=== PATIENT | male | born 1925 | race Caucasian/White ===

== ENCOUNTER 2016-10-31 07:04 | Inpatient (IN) | payer MEDICARE, OTHER ==
[~2016-10-31] VITALS: Ht 180.3 cm; Wt 64.0 kg
[~2016-10-31 07:04] MED LIST: ACET-2723 PO; ASPI-1085 PO; ATOR20TA PO; BISA10SU8 RECTALLY; CA C1TAB81 PO; CARV12.5 PO; CEPH500C2 PO; DONE10TA PO; FAMO20TA8 PO; FISH1CAP2 PO; FLUT16SP13 NS; FOLI-75 PO; FURO40TA5 PO; GUAI600T PO; HALO1TAB PO; LISI-625 PO; LORA0.5T86 PO; MAGN400O4 PO; MEMA10TA12 PO; MUPI22OI2 EA NOSTRIL; POTA10CA37 PO; SERT100T PO; WARF2.5T73 PO
--- OUTSIDE RECORDS SUMMARY | 2016-10-31 07:09 | XMS REPORT | Continuity of Care Document ---
Author Author [facility] Organization [facility] Address Unknown Phone Unavailable Support Name Relationship Address Phone MARLINE DUMONT DO Caregiver [address] [place] [address] [place] [address] Unavailable PHILIP STARK MD Caregiver [address] [place] [address] [place] [address] Unavailable PHILIP STARK MD Caregiver [address] [place] [address] [place] [address] Unavailable FELICITY TRUJILLO MD Caregiver [address] [facility] [address] [place] [address] Unavailable EDILIA SPICER (DPOA) Next Of Kin [address], [place] [id number] C Insurance Providers Guarantor Rabia Mason Address [address] [place] [address] C Email [email or web address] Payer Medicare Policy Number [id number] Subscriber's Name Rabia Mason Relationship 18 Self Payer R Policy Number [id number] Subscriber's Name Rabia Mason Relationship 18 Self Group Number [id number] Advance Directives Directive Response Recorded Date/Time Advanced Directives Type DNR Documentation Living Will DPOA for Healthcare 05/05/16 8:25am Dr Mueller Resuscitation Status Do Not Resuscitate 05/05/16 11:42am Resuscitation Documents on File Y showwalter 05/05/16 12:36pm DPOA for Healthcare Only Y daughter 05/06/16 3:10pm Living Will Yes 05/05/16 12:36pm Advanced Directive or Resuscitation Comments DNR 05/05/16 12:36pm Problems Active Problems Medical Problem Onset Date Status Acute respiratory failure with hypoxia Unknown Resolved Anemia of chronic disease Unknown Anticoagulated on Coumadin Unknown Chronic Atrial fibrillation Unknown Chronic CKD (chronic kidney disease) stage 3, GFR 30-59 ml/min Unknown Chronic Delirium secondary to multiple medical problems Unknown Dementia Unknown Chronic Dysphagia Unknown Fall Unknown Acute HTN (hypertension) Unknown Chronic Hypokalemia 05/06/2016 Acute Major neurocognitive disorder Unknown Prostate cancer Unknown Resolved Pulmonary edema Unknown Resolved Past Problems Medical Problem Onset Date CHF (congestive heart failure) Unknown Elevated troponin I level Unknown Medications Current Home Medications Medication Dose Units Route Directions Days Qty Instructions Start Date Acetaminophen (Tylenol Extra Strength) 500 Mg Tablet 1 Tab Oral Twice A Day as needed for Pain/Fever 05/05/16 Aspirin (Aspirin Ec) 81 Mg Tablet.dr 81 Mg Oral Daily for Cad 30 Tablet 05/10/16 Atorvastatin Calcium (Lipitor) 20 Mg Tablet 20 Mg Oral Bedtime for Ascad 30 Tablet 05/10/16 Bisacodyl 10 Mg Supp.rect 10 Mg Rectally Daily as needed for Constipation 20 05/10/16 Ca Cmb No.1/Vit D3/B-6/Fa/B12 (Vitamin D3 1,000 Unit Tablet) 1 Each Tablet 2, 000 Unit Oral Daily 01/20/14 Carvedilol (Coreg) 12.5 Mg Tablet 1 Tab Oral Twice Daily With Meals BEST WITH MEALS. 05/05/16 Cephalexin 500 Mg Capsule 1 Cap Oral Three Times A Day for Pneumonia 15 Capsule 05/10/16 Donepezil Hcl (Aricept) 10 Mg Tablet 1 Tab Oral Bedtime 05/05/16 Famotidine 20 Mg Tablet 20 Mg Oral Daily for Gerd 30 Tablet Fluticasone Propionate 16 Gm Wisner.susp 1 Wisner Nasal Daily 09/28 Furosemide 40 Mg Tablet 40 Mg Oral Daily for Chf 30 Tablet 05/10/16 Guaifenesin (Mucinex) 600 Mg Tbbp.12hr 600 Mg Oral Every 12 Hours for Congestion 5 Days 05/10/16 Haloperidol 1 Mg Tablet 1 Mg Oral Bedtime for Dementia 30 Tablet Lisinopril 5 Mg Tablet 5 Mg Oral Bedtime for Chf 30 Tablet 05/10/16 Lorazepam (Ativan) 0.5 Mg Tablet 0.25 Mg Oral Twice A Day as needed for Anxiety/Restlessness 30 Tablet 05/10/16 Magnesium Hydroxide (Milk Of Magnesia) 400 Mg/5 Ml Oral.susp 30 Ml Oral Daily as needed for Constipation 30 Days 05/10/16 Memantine Hcl (Namenda) 10 Mg Tablet 10 Mg Oral Twice A Day Take 1 tablet,by mouth, 2 times a day. 05/05/16 Multivitamin/Iron/Folic Acid (Centrum Complete Multivit Tab) 1 Each Tablet 1 Tab Oral Daily 01/20/14 Mupirocin 22 Gm Oint...g. 1 Applic Each Nostril Twice A Day 7 Days 05/10/16 Hubbard-3 Fatty Acids/Fish Oil (Fish Oil 1,000 Mg Capsule) 1 Each Capsule 1,000 Mg Oral Twice A Day 01/20/14 Potassium Chloride 10 Meq Capsule.er 10 Meq Oral Give With Breakfast Take 1 capsule, by mouth, daily with breakfast 05/05/16 Sertraline Hcl (Zoloft) 100 Mg Tablet 100 Mg Oral Daily 05/05/16 Warfarin Sodium 2.5 Mg Tablet 2.5 Mg Oral 1700 for Afib 30 Tablet Take 1 tablet, by mouth, 1 time a day (at 5 pm). 05/10/16 Past Home Medications Medication Directions Ordered Status Cetirizine Hcl (Zyrtec) 10 Mg Capsule, 1 Cap Oral Daily 05/05/16 Discontinued Fluticasone Propionate (Flonase Allergy Relief 50 Mcg/Actuation Nasal) 9.9 Ml Wisner.susp, 1 Wisner Daily 05/05/16 Discontinued Hydrochlorothiazide 25 Mg Tablet, 12.5 Tab Oral Daily 09/28/12 Discontinued Lisinopril 20 Mg Tablet, 20 Mg Oral Twice A Day 01/20/14 Discontinued Lorazepam (Ativan) 0.5 Mg Tablet, 0.25 Mg Oral Twice A Day 05/05/16 Discontinued Quetiapine Fumarate (Seroquel) 50 Mg Tablet, 50 Mg Oral Bedtime 05/05/16 Discontinued Ranitidine Hcl 150 Mg Capsule, 75 Mg Oral Daily 09/28/12 Discontinued Risperidone (Risperdal) 0.25 Mg Tablet, 0.125 Twice A Day 05/05/16 Discontinued Warfarin Sodium 5 Mg Tablet, 5 Mg Oral M/W/F 01/20/14 Discontinued Social History Social History Problem Response Recorded Date/Time Onset Date Status Reason for Hospitalization Acute CHF 05/10/2016 11:46am Not Applicable Not Applicable Chewing Tobacco Status No 09/28/2012 3:36pm Not Applicable Not Applicable Hx Substance Use No 05/05/2016 8:25am Not Applicable Not Applicable Hx Alcohol Use No 05/05/2016 8:25am Not Applicable Not Applicable Has the pt used tobacco in the last 12 months No 05/05/2016 12:53pm Not Applicable Not Applicable Query Response Start Date Stop Date Smoking Status Never smoker Hospital Discharge Instructions Instructions: Care Instructions: Reason for Hospitalization: Acute CHF [facility]charge [facility], regular liquid; no added salt, may have up to 2 quarts fluid/day Discharge Activity: As tolerated Follow Up Appointments: Dr Trujillo in [address] Rocha in 2-4 weeks Pending Lab / Results: No Pending Lab Patient Instructions: Start Coumadin and Cephalexin tomorrow Wound/Incision Care: n/a Pain Management/Treatment: Tylenol as needed Expected Signs/Symptoms: Improvement of respirtory status Notify Physician If: Chest pain. Increase SOA. Productive cough During Business Hours:: Nursing staff at [facility] After Business Hours:: Nursing staff at [facility] Condition at time of discharge: Good Plan of Care Discharge Date 05/10/16 2:30pm Disposition 03 TO [facility] NOT [facility] ([facility]) Instructions/Education Provided How to Prevent Falls Prescriptions See Medication Section Care Plan and Goals See Discharge Instructions Section Functional Status Query Response Date Recorded Mobility Status Ambulatory w/assist May 10, 2016 11:46am Assistive Devices Standard Walker May 10, 2016 11:46am Activity Limitations Weakness Fatigue Shortness of breath Dizziness May 10, 2016 11:46am Feeding Ability Independent May 10, 2016 11:46am Toileting Ability Assist May 10, 2016 11:46am Grooming Ability Assist May 10, 2016 11:46am Dressing Ability Assist May 10, 2016 11:46am Driving Ability Dependent May 10, 2016 11:46am Housework Ability Dependent May 10, 2016 11:46am Meal Preparation Ability Dependent May 10, 2016 11:46am Stair Climbing Ability Assist May 10, 2016 11:46am Ability to complete ADL's impeded by Change in Behavior Impaired Mobility May 10, 2016 11:46am Cognitive/Perceptual Impairments Acute confusion May 10, 2016 11:46am Visual Assistive Devices Glasses May 08, 2016 12:27pm Allergies, Adverse Reactions, Alerts No known allergies. Immunizations Query Response on File Recorded Date/Time Hx Influenza Vaccination Y fall05/05/16 12:53pm Hx Pneumococcal Vaccination Y fall 201205/05/16 12:53pm Hx Influenza Vaccination Y fall05/05/16 12:53pm Influenza Vaccine Hx fall 201505/05/16 12:57pm Vital Signs Acute Vital Signs Vital Response Date/Time Temperature (Fahrenheit) 98.0 deg F (96.8 - 99.1) 05/10/2016 7:00am Temperature (Calculated Celsius) 36.86785 degrees C (36.0 - 37.3) 05/10/2016 7:00am Pulse Rate (adult) 75 bpm (60 - 100) 05/10/2016 7:00am Respiratory Rate 18 breaths/min (10 - 20) 05/10/2016 7:00am O2 Sat by Pulse Oximetry 94 % (90 - 100) 05/10/2016 7:00am Oxygen Delivery Method Room Air 05/10/2016 7:53am Oxygen Delivery Method Room Air 05/10/2016 7:00am Oxygen Flow Rate 1.00 L/min 05/09/2016 12:16am Blood Pressure 162/88 mm Hg 05/10/2016 7:00am Blood Pressure Source Automatic Cuff 05/10/2016 7:00am Height (Feet) 5 feet 05/10/2016 11:09am Height (Inches) 10.00 inches 05/10/2016 11:09am Weight (Kilograms) 64.100 kg 05/10/2016 7:33am Body Mass Index (BMI) 24.2 05/05/2016 12:35pm Results Laboratory Results Test Name Result Units Flags Reference Collection Date/Time Result Date/ Time Comments White Blood Count 10.7 T/MM3 4.5-11.0 05/10/2016 4:31am 05/10/2016 5: 24am Red Blood Count 3.92 M/MM3 L 4.50-5.90 05/10/2016 4:31am 05/10/2016 5: 24am Hemoglobin 12.5 GM/DL L 13.5-17.5 05/10/2016 4:31am 05/10/2016 5:24am Hematocrit 38.2 % L 41-53 05/10/2016 4:31am 05/10/2016 5:24am Mean Corpuscular Volume 97.4 UM3 80-100 05/10/2016 4:31am 05/10/2016 5: 24am Mean Corpuscular Hemoglobin 31.9 UUG 26-34 05/10/2016 4:31am 2015 5:24am Mean Corpuscular Hemoglobin Concent 32.7 GM/DL 31-37 05/10/2016 4:31am 05/10/2016 5:24am RDW Standard Deviation 48.1 FL 36.9-50.2 05/10/2016 4:3105/10/2016 5 :24am Platelet Count 165 T/MM3 130-400 05/10/2016 4:05/10/2016 5:24am Mean Platelet Volume 11.7 UM3 9.4-12.4 05/10/2016 4:05/10/2016 5: 24am Neutrophils (%) (Auto) 80.4 % H 33-66 05/10/2016 4:05/10/2016 5: 24am Lymphocytes (%) (Auto) 8.3 % L 23-45 05/10/2016 4:05/10/2016 5: 24am Monocytes (%) (Auto) 10.6 % H 0-9.0 05/10/2016 4:05/10/2016 5:24am Eosinophils (%) (Auto) 0.2 % 0-4 05/10/2016 4:05/10/2016 5:24am Basophils (%) (Auto) 0.2 % 0-2 05/10/2016 4:05/10/2016 5:24am Immature Granulocyte % (Auto) 0.3 % 0.0-0.5 05/10/2016 4:2015 5:24am Absolute Neutrophils (auto) 8.6 T/MM3 H 1.8-7.7 05/10/2016 4:2015 5:24am Absolute Lymphocytes (auto) 0.9 T/MM3 L 1-4.8 05/10/2016 4:2015 5:24am Absolute Monocytes (auto) 1.1 T/MM3 H 0-0.8 05/10/2016 4:2015 5:24am Absolute Eosinophils (auto) 0.0 T/MM3 0-0.5 05/10/2016 4:2015 5:24am Absolute Basophils (auto) 0.0 T/MM3 0-0.2 05/10/2016 4:05/10/2016 5:24am Absolute Immature Granulocyte (auto 0.03 T/MM3 0.00-0.03 05/10/2016 4: 05/10/2016 5:24am Neutrophils % (Manual) 86.0 % H 33-66 05/05/2016 8:59am 05/05/2016 9: 22am Band Neutrophils % 2.0 % D 0-6 05/05/2016 8:59am 05/05/2016 9:22am Lymphocytes % (Manual) 10.0 % L 23-45 05/05/2016 8:59am 05/05/2016 9: 22am Monocytes % (Manual) 2.0 % 0-9.0 05/05/2016 8:59am 05/05/2016 9:22am Band Neutrophils # 0.2 T/MM3 05/05/2016 8:59am 05/05/2016 9:22am Absolute Neutrophils (Manual) 8.0 T/MM3 H 1.8-7.7 05/05/2016 8:59am 9:22am Lymphocytes # (Manual) 0.9 T/MM3 L 1-4.8 05/05/2016 8:59am 05/05/2016 9: 22am Monocytes # (Manual) 0.2 T/MM3 0-0.8 05/05/2016 8:59am 05/05/2016 9: 22am Red Cell Morphology Comment NORMAL 05/05/2016 8:59am 05/05/2016 9: 22am Prothromb Time International Ratio 2.51 H 0.99-1.21 05/10/2016 4:31am 05/10/2016 5:26am THERAPUTIC RANGE=2.00-3.00 FOR ANTI-THROMBOSIS THERAPUTIC RANGE=2.50-3.50 FOR IMPLANTED VALVE Icterus Index < 2 0-7 05/10/2016 4:31am 05/10/2016 5:46am Chemistry Specimen Hemolysis < 15 0-25 05/10/2016 4:31am 05/10/2016 5 :46am 0-25: Specimen Exhibited No Hemolysis. Turbidity < 20 0-20 05/10/2016 4:31am 05/10/2016 5:46am Sodium Level 145 MEQ/L H 134-144 05/10/2016 4:31am 05/10/2016 5:46am Potassium Level 3.5 MEQ/L L 3.6-5 05/10/2016 4:31am 05/10/2016 5:46am Chloride Level 101 MEQ/L 98-107 05/10/2016 4:31am 05/10/2016 5:46am Carbon Dioxide Level 34 MEQ/L H 22-30 05/10/2016 4:31am 05/10/2016 5: 46am Anion Gap 10 MEQ/L 5-15 05/10/2016 4:31am 05/10/2016 5:46am Blood Urea Nitrogen 53.0 MG/DL *H 9-20 05/10/2016 4:31am 05/10/2016 6: 03am Creatinine 1.3 MG/DL 0.8-1.5 05/10/2016 4:31am 05/10/2016 5:46am BUN/Creatinine Ratio 41 RATIO H 6-05/10/2016 4:31am 05/10/2016 5: 46am Glomerular Filtration Rate Calc 52 05/10/2016 4:31am 05/10/2016 5: 46am Glucose Level 146 MG/DL H 75-110 05/10/2016 4:31am 05/10/2016 5:46am Calculated Osmolality 296 MOSM/KG H 261-280 05/10/2016 4:31am 2015 5:46am Calcium Level 9.1 MG/DL 8.4-10.2 05/10/2016 4:31am 05/10/2016 5:46am Total Bilirubin 1.10 MG/DL 0.20-1.30 05/08/2016 4:37am 05/08/2016 5: 10am Alkaline Phosphatase 206 U/L H 38-126 05/08/2016 4:37am 05/08/2016 5: 10am Total Protein 6.5 G/DL 6.3-8.2 05/08/2016 4:37am 05/08/2016 5:10am Albumin 3.5 G/DL 3.5-5.0 05/08/2016 4:37am 05/08/2016 5:10am Globulin 3.0 G/DL 2.4-3.6 05/08/2016 4:37am 05/08/2016 5:10am Albumin/Globulin Ratio 1.2 RATIO 1.1-2.2 05/08/2016 4:37am 05/08/2016 5 :10am Aspartate Amino Transf (AST/SGOT) 46 U/L 17-59 05/08/2016 4:37am 2015 5:10am Alanine Aminotransferase (ALT/SGPT) 36 U/L 21-72 05/08/2016 4:37am 5:10am Troponin I 1.150 ng/ml H 0-0.12 05/06/2016 4:35am 05/06/2016 5:38am Troponin values greater than 0.120 ng/ml are considered a critical value. Troponin values with a difference of 55% increase from orginal troponin value represent a true biological DELTA value. (%increase Calc=Orginal Troponin value, divided by subsequent Troponin value, multiplied by 100) RM-Kxa-A-Type Natriuretic Peptide 5570 PG/ML H 0-175 05/09/2016 4:15am 05/09/2016 5:18am Rule in cut points: <50 years old=450; 50-75 years old=900; >75 years old=1800; When utilizing ProBNP rule-in cut points, adjustment for impaired renal function is typically not required. Magnesium Level 2.0 MG/DL 1.6-2.3 05/09/2016 4:15am 05/09/2016 5:11am Vitamin B12 Level 592 PG/ML 239-931 05/07/2016 4:59am 05/09/2016 2: 38am Folate 17.7 NG/ML 2.76-20 05/08/2016 4:37am 05/09/2016 2:57am NORMAL ADULT RANGE: 2.76->20 ng/mL Thyroid Stimulating Hormone (TSH) 1.37 MIU/L 0.47-4.68 05/08/2016 4: 37am 05/08/2016 5:40am MRSA Specimen Source NASAL 05/08/2016 7:27am 05/08/2016 10:33am Methicillin-Resist S.aureus DNA PCR POSITIVE A NEGATIVE 05/08/2016 7: 27am 05/08/2016 10:33am Urine Collection Type CLAROS INDWELLING 05/05/2016 10:45am 2015 10:53am Urine Color YELLOW YELLOW 05/05/2016 10:45am 05/05/2016 10:53am Urine Turbidity CLEAR CLEAR 05/05/2016 10:45am 05/05/2016 10:53am Urine Specific [place] >=1.030 H 1.015-1.025 05/05/2016 10:45am 2015 10:53am Urine pH 5.5 5.0-8.0 05/05/2016 10:45am 05/05/2016 10:53am Urine Leukocyte Esterase NEGATIVE NEGATIVE 05/05/2016 10:45am 2015 10:53am Urine Nitrite NEGATIVE NEGATIVE 05/05/2016 10:45am 05/05/2016 10: 53am Urine Protein NEGATIVE NEGATIVE 05/05/2016 10:45am 05/05/2016 10: 53am Urine Glucose (UA) NEGATIVE NEGATIVE 05/05/2016 10:45am 05/05/2016 10 :53am Urine Ketones TRACE A NEGATIVE 05/05/2016 10:45am 05/05/2016 10:53am Urine Urobilinogen 0.2 EU/DL NORMAL 05/05/2016 10:45am 05/05/2016 10: 53am Urine Bilirubin NEGATIVE NEGATIVE 05/05/2016 10:45am 05/05/2016 10: 53am Urine Blood 1+ A NEGATIVE 05/05/2016 10:45am 05/05/2016 10:53am Urine WBC 0-1 /HPF 0-5 05/05/2016 10:45am 05/05/2016 11:02am Urine RBC 1-3 /HPF 0-3 05/05/2016 10:45am 05/05/2016 11:02am Urine Squamous Epithelial Cells 0-5 05/05/2016 10:45am 05/05/2016 11:02am Urine Bacteria NONE SEEN NEGATIVE 05/05/2016 10:45am 05/05/2016 11: 02am Urine Mucus PRESENT 05/05/2016 10:45am 05/05/2016 11:02am Urine Culture Indicated CULT NOT INDICATED 05/05/2016 10:45am 05/05 11:02am Name: RABIA MASON Unit #: [id number] : 1925 Sex: M Admit Date: 05/05/16 Loc / Svc: MED Discharge Date: DIAGNOSTIC IMAGING REPORT Report #: [id number] [facility] PALLAVI [place] INDICATION: ITS.REASON: f/u pulm edema PROCEDURE: CHEST 2-VIEWS UPRIGHT (PA \T\ LAT) Encounter: Initial COMPARISON: 05/05/2016 FINDINGS: Continued extensive airspace consolidation throughout the left lung. The left base appears to have improved in aeration. Slight haziness of the right base appears similar. Bilateral subpulmonic effusions. There is mild cardiomegaly without pulmonary vascular engorgement or widening of vascular pedicle. Monitor leads overlie the chest. There is no significant skeletal abnormality. IMPRESSION: Bilateral pulmonary opacities with considerable airspace disease throughout the left lung and in the right base with subpulmonic effusions. Some improvement in the left basal aeration. . Procedures No known history of procedures. Encounters Encounter Location Arrival/Admit Date Discharge/Depart Date Attending Provider Discharged Inpatient [facility] 05/05/16 11:42am 05/10/16 2:30pm PHILIP STARK MD
--- NOTE | 2016-10-31 07:20 | NUR ---
SPINE BOARD Removed from board with myself, Peg HODGES and Dr Villalobos. Spine assessment by Dr Villalobos. Sasha pain is R posterior hip and R leg is noted to be shortened.
--- NOTE | 2016-10-31 07:27 | NUR ---
SPLINT Pillow splint applied to R leg for comfort.
--- NOTE | 2016-10-31 07:37 | ERPDOC ---
Departure Disposition Decision Date: October 31, 2016 Disposition Decision Time: 08:00 Disposition: 02 TO [facility] Impression Impression Impression: Primary Impression: Hip fracture Encounter type: initial encounter Fracture type: closed Laterality: right Qualified Codes: S72.001A - Fracture of unspecified part of neck of right femur, initial encounter for closed fracture Severity: Moderate Condition: Improved Seen By: Physician only Referrals: FELICITY SNOWDEN MD (Family) Problems/Meds/Labs Reviewed?: Yes Medications reviewed and manag: Yes Follow up care ordered?: Yes Mental Status: Alert HPI - Fall/Injury General Chief Complaint: Fall Stated Complaint: FALL-HIP PAIN Time Seen by Provider: 07:06 Source: patient, EMS, prison records Exam Limitations: no limitations HPI - Fall/Injury Initial Comments 89-year-old male presents to the emergency department with a chief complaint of an injury to his right hip. Patient was at the nursing facility when he suffered a witnessed mechanical fall. Patient suffered a fall from standing landing onto his right hip. Patient notes pain only in the right hip. Pain is moderate to severe. Pain is sharp. Patient denies any other complaints or associated symptoms. The fall was witnessed. Symptoms have been persistent in nature since onset. Pain increases with movement and improves with rest and positioning. Patient denies any other injuries. Patient is a DO NOT RESUSCITATE and does have noted dementia which is currently at baseline. Occurred At: other ([facility]) Onset: Constant Allergies: Coded Allergies: No Known Allergies (Unverified , 05/05/16) Past History Patient Surgical History tonsillectomy left inguinal hernia left cataract 2012 colonoscopy 2013 Past Medical History Metabolic: cancer, hypertension Cardiac: A-fib GI: GERD Male: kidney stones, renal failure Psychological: dementia Surgical History General: EGD, back, colonoscopy, hernia, other, tonsils Reproductive/: prostatectomy Family History Family PMH: FOUND: other Vaccines Hx Influenza Vaccination: Yes (fall) Hx Pneumococcal Vaccination: Yes (FALL 2012) Social History Smoking Status: Unknown if ever smoked Does patient use chewing tobac: No Second Hand Exposure: No Substance Use Type: does not use Alcohol Intake: none Marital Status: Sexuality: female partner Housing: prison Household Members: spouse Current Occupational Status: retired Advance Directives: Yes DNR Review of Systems Constitutional Constitutional: DENIES: chills, fever Eyes General: DENIES: erythema, exudate Lids/Accessories: DENIES: erythema, swelling Vision: DENIES: acuity, blurring ENMT Ears: DENIES: drainage, erythema Sinuses: DENIES: congestion, pain Nose: DENIES: nosebleeds, pain Mouth/Throat: DENIES: drooling, sore throat Teeth: DENIES: pain Jaw: DENIES: pain Cardiovascular Cardiac: DENIES: chest pain, dyspnea on exertion Rhythm/Rate: DENIES: irregular beat, palpitations Vascular: DENIES: pedal edema, unilateral swelling Pulmonary Respiratory: DENIES: cough, dyspnea GI Upper Abdomen: DENIES: nausea, pain, vomiting Lower Abdomen: DENIES: diarrhea, pain General: DENIES: dysuria, frequency Musculoskeletal General: joint pain, tenderness Integumentary Skin: DENIES: itching, rash Neurological General: DENIES: change in strength, headache, numbness, weakness Psychiatric Psychiatric: DENIES: emotional instability, suicidal ideation/attempt Endocrine Endocrine: DENIES: polydipsia, polyphagia Hematologic/Lymphatic Hematologic/Lymphatic: DENIES: frequent nosebleeds, lymphadenopathy Physical Exam General General Nourishment: well nourished, well developed, appears stated age, no acute distress, adult General Body Habitus: well groomed Vitals and Pain First Documented Vital Signs Date Time Temp Pulse Resp B/P Pulse Ox O2 Delivery O2 Flow Rate FiO2 10/31/16 07:05 98.2 66 20 136/74 88 Room Air Weight: Kilograms: Height (feet): 5 Height (inches): 10.00 Triage Pain Scale: RN VS reviewed by Provider: Yes Normal Exams: Head: Normocephalic w/o trauma Eyes: Pupils are PERRLA w/ EOMI, No scleral icterus, irritation, or foreign bodies noted ENMT: No facial trauma, nasal exudates, pharyngeal erythema, or exudates are noted Dental: No fractured, loose, or missing teeth noted Neck: without adenopathy, JVD, bruits or thyromegaly Chest/Resp: Clear all tarango, with good airflow, and symmetry bilaterally CV: Regular rate and rhythm, without murmur or gallop, Pulses 2+ all extremities, capillary refill, <2 seconds all ext., no pedal edema noted Abdomen: Bowel sounds positive, soft, non-tender, non-distended, no hepatosplenomegaly, masses or bruits noted Lymphatic: No lymphadenopathy, or lymphedema noted Integumentary: No rashes, hives, or bruising noted, hair and nails, without abnormality Neurologic: Patient is alert Psychiatric: Patient exhibits, appropriate attention, emotion and affect Neck (brief) Comments Cervical spine has no tenderness to palpation or deformity. Musculoskeletal (brief) Comments R Hip: Decreased range of motion secondary to pain. Shortening and external rotation of the leg is noted. Pulses are intact. Sensation intact. capillary refill less than 2. No other tenderness in the right lower extremity. Skin is intact. All other extremities are unremarkable. Differential Diagnoses Considering: Other (sprain/strain/fracture/contusion) Progress Results/Orders Orders Procedure Category Date Status Time Ct Head W/O Contrast CT 10/31/16 Resulted 07:23 Ct Cervical Spine W/O CT 10/31/16 Resulted Contrast 07:23 INR LAB 10/31/16 Complete Fentanyl (Fentanyl) PHA 10/31/16 Complete 08:00 Ondansetron Inj PHA 10/31/16 Complete (Zofran) 08:00 Normal Saline (Ns) PHA 10/31/16 Complete 08:00 Ct Pelvis W/O Contrast CT 10/31/16 Resulted 08:01 Npo After Midnight HELEN 10/31/16 In Process 08:27 Maintain Bedrest HELEN 10/31/16 In Process 08:27 Eldred Traction HELEN 10/31/16 In Process 08:27 Consent For Procedure HELEN 10/31/16 In Process 08:27 Npo: Nothing By Mouth DIET 11/01/16 Transmitted Breakfast Type And Screen BBK 10/31/16 In Process 08:08 Lab Results Laboratory Tests Test 10/31/16 08:05 Prothromb Time International Ratio 1.94 Medications Current ED Medications Fentanyl (Fentanyl) 50 mcg O ONCE IV Last administered on 10/31/16 08:34; Start 10/31/16 at 08:00; Stop 10/31/16 at 08:01; Status DC Ondansetron HCl 4 mg 4 mg O ONCE IV Last administered on 10/31/16 08:32; Start 10/31/16 at 08:00; Stop 10/31/16 at 08:01; Status DC Sodium Chloride (NS) 500 ml @ 999 mls/hr Q31M ONCE IV Last administered on 08:28; Start 10/31/16 at 08:00; Stop 10/31/16 at 08:30; Status DC Progress Progress Patient initially declined offered pain medication upon arrival to the emergency Department. Patient was given fentanyl 50 g IV times one for analgesia after patient changes his mind and agrees to accept pain medication. Patient is discussed with orthopedics and Dr. Mckeon will see the patient. Patient is admitted to the service of Dr. Jarrett in improved condition. Dr. Jarrett has agreed to perform the surgical clearance evaluation. Patient is admitted to the hospital in improved condition. Patient and family are in agreement with the current plan of management. No further orders from accepting or consulting physicians. Patient is admitted to the hospital in improved condition. CT CT : CT: Head no contrast Interpretation: Normal, Reviewed Written Report (CT Cspine: Negative. CT pelvis: Right intertrochanteric fracture.) KOKI CANTU DO October 31, 2016 07:37 Luiza has agreed to perform the surgical clearance evaluation. Patient is admitted to the hospital in improved condition. Patient and family are in agreement with the current plan of management. No further orders from accepting or consulting physicians. Patient is admitted to the hospital in improved condition. CT CT : CT: Head no contrast Interpretation: Normal, Reviewed Written Report (CT Cspine: Negative. CT pelvis: Right intertrochanteric fracture.) KOKI CANTU DO October 31, 2016 07:37
--- NOTE | 2016-10-31 07:50 | NUR ---
PT NOTE Accompanied patient to CT for CSpine immobilization
--- NOTE | 2016-10-31 07:55 | NUR ---
PT NOTE Discussed potential CT hip/pelvis with Dr Villalobos related to significant pain in moving patient to/from Imaging table. He will add order.
[2016-10-31] MEDS ORDERED: NORMAL SALINE 500 ML IV ONE (08:00)
[2016-10-31] MEDS ORDERED: ONDANSETRON 4mg/2ml INJECTION IV ONE (08:00)
[2016-10-31] MEDS ORDERED: FENTANYL 100mcg/2ml INJECTION IV ONE (08:00)
--- NOTE | 2016-10-31 08:13 | DI ---
Indication: ITS.REASON: Fall with head injury and pain PROCEDURE: CT HEAD W/O CONTRAST: Encounter: Initial Comparison: May 05, 2016 Technique: Axial CT images through the head were performed without contrast. Iterative Reconstruction dose reducing technique was utilized. FINDINGS: Moderate generalized atrophy. The ventricles are of normal size, shape, and configuration for the patient's age. There is no evidence of acute intracranial hemorrhage, midline displacement, or mass effect. There are scattered areas of low attenuation in the white matter which most likely represent changes of chronic microvascular ischemia. The CT attenuation of the brain parenchyma is otherwise normal within the cerebellum, brain stem, and cerebral hemispheres. The tympanic cavities and mastoid air cells are free of appreciable disease. There are no definite fractures of the skull base, calvarium, or visualized portion of the midface. IMPRESSION: No CT evidence of acute traumatic intracranial injury. .
--- NOTE | 2016-10-31 08:15 | DI ---
Indication: ITS.REASON: fall injury PROCEDURE: CT CERVICAL SPINE W/O CONTRAST: Encounter: Initial Comparison: May 05, 2016 Technique: Axial CT images through the cervical spine were performed without contrast. Coronal and sagittal reformatted images were also obtained. Automated Exposure Control and Iterative Reconstruction dose reducing techniques were utilized. FINDINGS: The alignment of the cervical spine is normal. Multilevel degenerative changes are present. There is no evidence of acute fracture or subluxation of the cervical spine. The atlantoaxial articulation, dens, and upper cervical spine demonstrate no subluxation. Stable nodularity in the left upper lobe. IMPRESSION: No acute traumatic abnormality of the cervical spine. .
--- NOTE | 2016-10-31 08:17 | DI ---
Indication: ITS.REASON: Fall with right hip pain PROCEDURE: CT PELVIS W/O CONTRAST: Encounter: Initial Comparison: None Technique: Axial noncontrast CT imaging through the pelvis with coronal and sagittal two-dimensional reformats. Automated Exposure Control and Iterative Reconstruction dose reducing techniques were utilized. Findings: Mildly comminuted and impacted fracture of the intertrochanteric right femur. No additional acute fracture. No dislocation. There is no significant hematoma associated with the fracture currently. No free pelvic fluid. Degenerative change in the visualized lower lumbar spine. Bones are demineralized limiting detection of nondisplaced fractures. Impression: Intertrochanteric right femoral fracture. .
[2016-10-31 08:19] LABS: INR 1.94 (0.77-1.03); PROTHROMBIN TIME 21.2 SEC (9.48-12.52)
--- NOTE | 2016-10-31 08:40 | NUR ---
REPORT REPORT TO COREY HODGESALLIGATOR H[facility] UNIT
--- NOTE | 2016-10-31 08:47 | NUR ---
C-COLLAR C-COLLAR REMOVED AT THIS TIME PER DR CANTU'S VERBAL ORDER
--- NOTE | 2016-10-31 08:59 | NUR ---
ADMIT Pt admitted to room 112 from ED via cart. Pt moved from cart to bed via slide board x3 assist. Pt Alert to self and situation. I knew he fell and that his leg hurts but is not an accurate historian as to how the fall occurred. Pt is also unaware where he is at. Pt appears to be comfortable but does grimace frequently. Will continue to monitor.
--- NOTE | 2016-10-31 08:59 | NUR ---
TRANSFER PT TO ROOM 112 PER CART
[2016-10-31] MEDS ORDERED: ONDANSETRON 4mg/2ml INJECTION IV PRN (09:00)
[2016-10-31] MEDS ORDERED: CEFAZOLIN 2 G in NORMAL SALINE 100 ML IV SCH (09:00)
[2016-10-31] MEDS ORDERED: NORMAL SALINE IV SCH (09:00)
[2016-10-31] MEDS ORDERED: CEFAZOLIN IV SCH (09:00)
[2016-10-31] MEDS ORDERED: NAPROXEN 220 MG TABLET PO PRN (09:00)
[2016-10-31] MEDS ORDERED: TRAMADOL 50 MG TABLET PO PRN (09:00)
[2016-10-31] MEDS ORDERED: MILK OF MAGNESIA 30 ML SUSP PO PRN (09:00)
[2016-10-31 09:13] VITALS: BP 161/99; PULSE 88; RESP 20; TEMP 97.3; O2SAT 96
[2016-10-31] MEDS ORDERED: PHYTONADIONE 5mg/2.5ml ORAL SOLUTION PO ONE ×2 (09:15→19:00)
[2016-10-31 09:17] VITALS: Ht 180.3 cm; Wt 64.0 kg
[2016-10-31] MEDS ORDERED: LORA0.5T2 PO (09:22)
[2016-10-31] MEDS ORDERED: WARF2.5T73 PO (09:23)
[2016-10-31] MEDS ORDERED: ASPI81TA2 PO (09:28)
[2016-10-31] MEDS ORDERED: FURO40TA5 PO (09:29)
[2016-10-31] MEDS ORDERED: FAMO20TA8 PO (09:29)
[2016-10-31] MEDS: NORMAL SALINE 1,000 ML IV SCH ×2 (09:56→21:58)
[2016-10-31] MEDS: HYDROMORPHONE 2mg/ml INJECTION IV PRN (10:01)
--- NOTE | 2016-10-31 10:01 | HPPDOC ---
ZEINA GALLARDO V SUSTAINMENT LOGISTICS ANALYST 10/31/16 1001: HPI - Adult Date DATE: 10/31/16 TIME: 09:56 General Chief Complaint: fall, right hip pain History of Present Illness Patient is an 89-year-old male who currently resides at [facility]. This morning he suffered a witnessed fall from standing, landing on the right hip. EMS was contacted and brought patient to the emergency room for further evaluation and treatment. A pelvis x-ray did reveal a right intertrochanteric femoral fracture. Given nature of patient's fall further trauma evaluation including CT scan of the head and C-spine were obtained showing no acute trauma/fractures or intracranial hemorrhages. Due to patient's chronic anticoagulation and INR was obtained which was 1.94. He did receive fentanyl and Zofran in the emergency room. He was mildly hypoxic with sats of 88 %. He was placed on 3 liters oxygen by nasal cannula to maintain adequate saturations. The hospitalist services were contacted and accepted patient for inpatient admission for further evaluation and treatment. Malcolm is seen on admission with his Son at the bedside. Son reports that patient has a known history of dementia and has had some cognitive decline over the past several months. We did discuss advanced directives as sun but does verify patient is a do not resuscitate. Past Medical History Past Medical History Chronic atrial fibrillation Chronic anticoagulation on warfarin Congestive heart failure Hypertension History of prostate cancer chronic kidney disease. Dementia Surgical History Patient's Surgical History: Tonsillectomy Left inguinal hernia Left cataract 2012 Colonoscopy 2013 Current Medications Home Meds Reported Medications Furosemide (Furosemide) 40 Mg Tablet, 40 MG PO DAILY 10/31/16 Famotidine (Famotidine) 20 Mg Tablet, 20 MG PO DAILY 10/31/16 Aspirin (Aspirin) 81 Mg Tab.chew, 81 MG PO DAILY 10/31/16 Warfarin Sodium (Warfarin Sodium) 2.5 Mg Tablet, 2.5 MG PO DAILY 10/31/16 Lorazepam (Lorazepam) 0.5 Mg Tablet, 0.25 MG PO BID Y for ANXIETY 10/31/16 Potassium Chloride (Potassium Chloride) 10 Meq Capsule.er, 20 MEQ PO BID 05/05/16 Sertraline (Zoloft) 100 Mg Tablet, 100 MG PO DAILY, TAB 05/05/16 Memantine HCl (Namenda) 10 Mg Tablet, 10 MG PO BID 11/21/16 Acetaminophen (Tylenol Extra Strength) 500 Mg Tablet, 500 MG PO BID 05/05/16 Donepezil HCl (Aricept) 10 Mg Tablet, 10 MG PO HS 05/05/16 Carvedilol (Coreg) 12.5 Mg Tablet, 12.5 MG PO BIDWM 05/05/16 Fluticasone Propionate (Fluticasone Propionate) 16 Gm [place].susp, 1 SPRAY NS DAILY 09/28/12 Allergies: Coded Allergies: No Known Allergies (Unverified , 10/31/16) Family History Family History: His mother of tuberculosis when he was only 6 years old. His father of complications from pneumonia before he was born - he had lung damage from the war, and it was worse from working in the coal [employer]. He did not have any siblings He was raised by his maternal aunt, who lived until the age of 91. She had dementia. 2 grown children who are both healthy. Social History Smoking Status: Unknown if ever smoked Does patient use chewing tobac: No Second Hand Exposure: No Substance Use Type: does not use Alcohol Intake: none Marital Status: Sexuality: female partner Housing: long term ([facility]) Household Members: spouse Current Occupational Status: retired Advance Directives: Yes DNR, Yes DPOA for Healthcare Only (Son and Daughter share POA) Social History Comments PCP Dr Trujillo Review of Systems Unable to Obtain ROS Due to: dementia Musculoskeletal General: pain (Right hip), see HPI All Other Systems All Other Systems: Reviewed (remainder of 10-point ROS Neg.) Physical Exam General General Nourishment: well nourished, well developed Vital Signs Vital Signs Date Time Temp Pulse Resp B/P Pulse Ox O2 Delivery O2 Flow Rate FiO2 10/31/16 09:13 97.3 88 20 161/99 96 Nasal Cannula 3.00 Height (Feet): 5 Height (Inches): 11.00 Eyes Brief: FOUND: EOMI, PERRL ENMT Brief: FOUND: mucosa moist, normal dentition, NOT FOUND: pharnyx erythema Neck Brief: FOUND: midline Respiratory Brief: FOUND: clear all tarango, equal bilaterally, NOT FOUND: wheezes Cardiovascular (brief) Cardiac Brief: FOUND: regular rate, regular rhythm, NOT FOUND: murmur, pedal edema Abdomen (brief) Abdominal Brief: FOUND: BS normo active x4, soft, NOT FOUND: distended, tender Musculoskeletal (brief) Musculoskeletal Brief: FOUND: tenderness (Right hip fracture) Integumentary (brief) Integumentary Brief: FOUND: dry, pink, warm Neurologic (brief) Neurological Brief: FOUND: cranial 2-12 intact Neurologic RN Documented GCS Eye Opening: (4)Spontaneous Verbal: (4)Confused Motor: (5)Localizes to Pain Total: 12 Psychiatric (brief) FOUND: alert, attentive, normal affect Laboratory Laboratory Tests Test 10/31/16 08:05 Prothromb Time International Ratio 1.94 Assessment & Plan Problems: (1) Intertrochanteric fracture of right hip Status: Acute Qualifiers: Encounter type: initial encounter Fracture type: closed Qualified Codes: S72.141A - Displaced intertrochanteric fracture of right femur, initial encounter for closed fracture (2) CHF (congestive heart failure) Status: Chronic (3) CKD (chronic kidney disease) stage 3, GFR 30-59 ml/min Status: Chronic (4) Atrial fibrillation Status: Chronic (5) Anticoagulated on Coumadin Status: Chronic (6) HTN (hypertension) Status: Chronic (7) Dementia Status: Chronic (8) Prostate cancer Status: Resolved Plan/Intensity of Service Admit patient to inpatient status under the care of Dr. Jarrett for acute right intertrochanteric hip fracture Consultation placed to Dr. Mckeon for further orthopedic evaluation and treatment. Will obtain the following laboratory studies on admission CBC, CMP, urinalysis. Regarding INR of 1.94, will give patient vitamin K 5 milligrams by mouth 1 now. Will recheck an INR this evening at 1800. Will need to start Lovenox post-operatively to bridge Coumadin until therapeutic Place Johnson cath to DD Obtain preoperative chest x-ray. Normal saline at 80 ML per hour for gentle hydration. Monitor for evidence of fluid overload. [place] and tramadol as needed for pain control. Oxygen therapy to maintain adequate saturations. Will recheck CBC and BMP tomorrow morning to follow blood counts, renal function and electrolytes. Again, patient's son request patient to be a do not resuscitate and this orders written. Will discuss further orders and plan of care with attending, Dr. Jarrett At time of discharge medical care is to return to PCP Dr Perfecto Trujillo DVT Prophylaxis: SCD'S Code Status DNR Hospital Course Summary Disclaimer The hospital course summary below is not to be considered part of the above Progress Note. Hospital Course Summary Admit patient to inpatient status under the care of Dr. Jarrett for acute right intertrochanteric hip fracture Consultation placed to Dr. Mckeon for further orthopedic evaluation and treatment. Will obtain the following laboratory studies on admission CBC, CMP, urinalysis. Regarding INR of 1.94, will give patient vitamin K 5 milligrams by mouth 1 now. Will recheck an INR this evening at 1800. Will need to start Lovenox post-operatively to bridge Coumadin until therapeutic Place Johnson cath to DD Obtain preoperative chest x-ray. Normal saline at 80 ML per hour for gentle hydration. Monitor for evidence of fluid overload. [place] and tramadol as needed for pain control. Oxygen therapy to maintain adequate saturations. Will recheck CBC and BMP tomorrow morning to follow blood counts, renal function and electrolytes. Again, patient's son request patient to be a do not resuscitate and this orders written. Will discuss further orders and plan of care with attending, Dr. Jarrett At time of discharge medical care is to return to PCP WILLIAM Lopez MD 10/31/16 2011: Past Medical History Current Medications Home Meds Reported Medications Furosemide (Furosemide) 40 Mg Tablet, 40 MG PO DAILY 10/31/16 Famotidine (Famotidine) 20 Mg Tablet, 20 MG PO DAILY 10/31/16 Aspirin (Aspirin) 81 Mg Tab.chew, 81 MG PO DAILY 10/31/16 Warfarin Sodium (Warfarin Sodium) 2.5 Mg Tablet, 2.5 MG PO DAILY 10/31/16 Lorazepam (Lorazepam) 0.5 Mg Tablet, 0.25 MG PO BID Y for ANXIETY 10/31/16 Potassium Chloride (Potassium Chloride) 10 Meq Capsule.er, 20 MEQ PO BID 05/05/16 Sertraline (Zoloft) 100 Mg Tablet, 100 MG PO DAILY, TAB 05/05/16 Memantine HCl (Namenda) 10 Mg Tablet, 10 MG PO BID 05/05/16 Acetaminophen (Tylenol Extra Strength) 500 Mg Tablet, 500 MG PO BID 05/05/16 Donepezil HCl (Aricept) 10 Mg Tablet, 10 MG PO HS 05/05/16 Carvedilol (Coreg) 12.5 Mg Tablet, 12.5 MG PO BIDWM 05/05/16 Fluticasone Propionate (Fluticasone Propionate) 16 Gm [place].susp, 1 SPRAY NS DAILY 09/28/12 Allergies: Coded Allergies: No Known Allergies (Unverified , 10/31/16) Assessment & Plan Problems: (1) Intertrochanteric fracture of right hip Status: Acute Qualifiers: Encounter type: initial encounter Fracture type: closed Qualified Codes: S72.141A - Displaced intertrochanteric fracture of right femur, initial encounter for closed fracture (2) CHF (congestive heart failure) Status: Chronic (3) CKD (chronic kidney disease) stage 3, GFR 30-59 ml/min Status: Chronic (4) Atrial fibrillation Status: Chronic (5) Anticoagulated on Coumadin Status: Chronic Assessment & Plan: Patient was given an initial dose of 5 mg oral vitamin K, but by the evening was not yet responsive so 2nd dose was given. This is not effective by morning fresh frozen plasma may be given prior to surgery (6) HTN (hypertension) Status: Chronic (7) Dementia Status: Chronic (8) Prostate cancer Status: Resolved Assessment Patient seen and examined by me. Have read and agree with nurse practitioner Zeina Gallardo's history and physical, assessment and plan. Orthopedics is anticipating surgery approximately noon tomorrow. We will attempt to accommodate this ZEINA GALLARDO APRN October 31, 2016 10:01 WILLIAM JARRETT MD October 31, 2016 20:11
[2016-10-31 10:11] LABS: BASOPHILS # (AUTO) 0.1 T/MM3 (0-0.2); BASOPHILS % (AUTO) 1.2 % (0-2); EOSINOPHILS # (AUTO) 0.2 T/MM3 (0-0.5); EOSINOPHILS % (AUTO) 4.8 % (0-4); HCT - HEMATOCRIT 35.7 % (41-53); HGB - HEMOGLOBIN 11.9 GM/DL (13.5-17.5); IMMATURE GRANULOCYTE # (AUTO) 0.01 T/MM3 (0.00-0.03); IMMATURE GRANULOCYTE % (AUTO) 0.2 % (0.0-0.5); LYMPHOCYTES # (AUTO) 0.9 T/MM3 (1-4.8); MEAN CORPUSCULAR HGB CONC(MCHC 33.3 GM/DL (31-37); MEAN PLATELET VOLUME 11.7 UM3 (9.4-12.4); MONOCYTES # (AUTO) 0.4 T/MM3 (0-0.8); MONOCYTES % (AUTO) 8.6 % (0-9.0); NEUTROPHILS #(AUTO)-ABSOLUTE 3.4 T/MM3 (1.8-7.7); NEUTROPHILS % (AUTO) 68.2 % (33-66); RED BLOOD COUNT 3.84 M/MM3 (4.50-5.90)
[2016-10-31 10:20] LABS: ALBUMIN 4.3 G/DL (3.5-5.0); ALBUMIN/GLOBULIN RATIO 1.4 RATIO (1.1-2.2); ALKALINE PHOSPHATASE 223 U/L (38-126); ALT (SGPT) 43 U/L (21-72); ANION GAP 16 MEQ/L (5-15); AST (SGOT) 38 U/L (17-59); BUN/CREATININE RATIO 26 RATIO (6-26); CALCIUM 9.6 MG/DL (8.4-10.2); CHLORIDE 100 MEQ/L (98-107); CO2 - CARBON DIOXIDE 28 MEQ/L (22-30); CREATININE 1.2 MG/DL (0.8-1.5); GLOMERULAR FILTRATION RATE 57; GLUCOSE 107 MG/DL (75-110); POTASSIUM 4.1 MEQ/L (3.6-5); SODIUM 144 MEQ/L (134-144); TOTAL PROTEIN 7.4 G/DL (6.3-8.2)
--- NOTE | 2016-10-31 10:20 | NUR ---
[place] Traction 5# bucks tractions applied to right extremity per physician order. Pt tolerated readjusting leg well. After bucks applied pt stated that his pain feels much better and he visibly relaxed. PRN 0.5 mg Dilaudid given to pt prior to application of BUCKS.
--- NOTE | 2016-10-31 10:30 | NUR ---
Johnson Insertion Johnson placed at this time by TATIANA Self using Indwelling Johnson kit and sterile technique. Pt penis cleaned with Aloe Foam and wash clothes as well as [place] soap wipes provided in kit. Pt tolerated insertion well. Urine specimen collected from Johnson bag (per policy/first time collection). Urine visibly clear and yellow. Will continue to monitor.
[2016-10-31] MEDS: SENNA + DOCUSATE TAB PO SCH ×2 (10:43→21:58)
--- NOTE | 2016-10-31 10:43 | NUR ---
Hubbell PRN One Hubbell 7.5mg PRN given at this time for pain. Pt grimacing and wants to rest. Requested pain medication.
[2016-10-31 10:48] LABS: BLOOD, URINE NEGATIVE (NEGATIVE); COLOR,URINE YELLOW (YELLOW); LEUKOCYTE ESTERASE ,URINE NEGATIVE (NEGATIVE); NITRITE,URINE NEGATIVE (NEGATIVE); UROBILINOGEN,URINE 0.2 EU/DL (NORMAL)
--- NOTE | 2016-10-31 11:55 | DI ---
Indication: ITS.REASON: pre operative PROCEDURE: CHEST 1 VIEW: Encounter: Initial Comparison: May 07, [address] thoracic spine dated May 05, 2016 and chest x-ray dated August 07, 2011 Findings: Airspace consolidation in the left lower lobe. Patient had multifocal airspace disease present on the comparison studies. Skinfold noted in the right chest. Right lung is clear. Possible trace effusions. No pneumothorax. Cardiac silhouette is moderately enlarged. Mediastinal contours are stable. Pulmonary vascularity appears normal. Impression: Left lower lobe airspace disease could be acute or chronic. Recommend clinical and laboratory correlation for signs and symptoms of pneumonia. .
--- NOTE | 2016-10-31 12:25 | NUR ---
CARE REC'D VERBAL REPORT FROM Cat DANIEL RN. ASSUMING CARE OF PT.
[2016-10-31 12:49] VITALS: PULSE 88; RESP 18
--- NOTE | 2016-10-31 13:23 | CONSPD ---
Consultation Info Date DATE: 10/31/16 TIME: 13:16 Attending Physician Alec Mckeon MD Impression/Recommendation Impression/Recommendation: (1) Intertrochanteric fracture of right hip Status: Acute Qualifiers: Encounter type: initial encounter Fracture type: closed Qualified Codes: S72.141A - Displaced intertrochanteric fracture of right femur, initial encounter for closed fracture Recommendation: x Dr Mckeon has agreed to see the pt and proceed with surgical fixation of the right hip if he is found to be medically stable. Risk vs benefits, possible complications and post surgical course will be discussed with the pts family as Mr Mason has dementia. Plan ORIF with IM nail when INR is < 1.3 . Vit K given earlier today. Check INR later today and in AM. Medical mgmt per hospitalist service. Ortho HPI HPI Elements HPI Chief Complaint: fall, right hip pain History of Present Illness Patient is an 89-year-old male who currently resides at [facility]. This morning he suffered a witnessed fall from standing, landing on the right hip. EMS was contacted and brought patient to the emergency room for further evaluation and treatment. X-rays did reveal a displaced right intertrochanteric femoral fracture. Given nature of patient's fall further trauma evaluation including CT scan of the head and C-spine were obtained showing no acute trauma/fractures or intracranial hemorrhages Pt will be admitted for planned surgical fixation of the right hip when the INR is <1,3 Review of Systems Unable to Obtain ROS Due to: dementia Musculoskeletal General: pain (Right hip), see HPI All Other Systems Reviewed (remainder of 10-point ROS Neg.) Past Medical History Adult Problem List Updates Chronic atrial fibrillation Chronic anticoagulation on warfarin Congestive heart failure Hypertension History of prostate cancer chronic kidney disease. Dementia Surgical History Patient's Surgical History: Tonsillectomy Left inguinal hernia Left cataract 2012 Colonoscopy 2013 Current Medications Acetaminophen (Tylenol Extra Strength) 500 Mg Tablet, 500 MG PO BID, (Reported) Last Taken: Unknown Dose on 10/30/16 1600 Aspirin (Aspirin) 81 Mg Tab.chew, 81 MG PO DAILY, (Reported) Last Taken: Unknown Dose on 10/30/16 0800 Carvedilol (Coreg) 12.5 Mg Tablet, 12.5 MG PO BIDWM, (Reported) Last Taken: Unknown Dose on 10/30/16 1700 Donepezil HCl (Aricept) 10 Mg Tablet, 10 MG PO HS, (Reported) Last Taken: Unknown Dose on 10/30/161999 Famotidine (Famotidine) 20 Mg Tablet, 20 MG PO DAILY, (Reported) Last Taken: Unknown Dose on 10/30/161999 Fluticasone Propionate ( Fluticasone Propionate) 16 Gm [place].susp, 1 SPRAY NS DAILY, (Reported) Last Taken: Unknown Dose on 10/30/16 0900 Furosemide (Furosemide) 40 Mg Tablet, 40 MG PO DAILY, (Reported) Last Taken: Unknown Dose on 10/30/16 0700 Lorazepam (Lorazepam) 0.5 Mg Tablet , 0.25 MG PO BID PRN for ANXIETY, (Reported) Last Taken: Unknown Dose on Unknown Date & Time Memantine HCl (Namenda) 10 Mg Tablet, 10 MG PO BID, (Reported) Last Taken: Unknown Dose on 10/30/16 1800 Potassium Chloride (Potassium Chloride) 10 Meq Capsule.er, 20 MEQ PO BID, (Reported) Last Taken: Unknown Dose on 10/30/16 1700 Sertraline (Zoloft) 100 Mg Tablet, 100 MG PO DAILY, (Reported) Last Taken: Unknown Dose on 10/30/16 0700 Warfarin Sodium (Warfarin Sodium) 2.5 Mg Tablet, 2.5 MG PO DAILY, (Reported) Last Taken: Unknown Dose on 10/30/16 1800 Allergies Allergies: Coded Allergies: No Known Allergies (Unverified , 10/31/16) Family History Family History: His mother of tuberculosis when he was only 6 years old. His father of complications from pneumonia before he was born - he had lung damage from the war, and it was worse from working in the [employer]. He did not have any siblings He was raised by his maternal aunt, who lived until the age of 91. She had dementia. 2 grown children who are both healthy. Vaccines fall 2015 2013 FALL 2012 UNKNOWN Social History Smoking Status: Unknown if ever smoked Does patient use chewing tobac: No Second Hand Exposure: No Substance Use Type: does not use Alcohol Intake: none Marital Status: Sexuality: female partner Housing: senior care ([facility]) Household Members: spouse Current Occupational Status: retired Advance Directives: Yes DNR, Yes DPOA for Healthcare Only (Son and Daughter share POA) Physical Exam General General: well nourished, well developed, no acute distress Respiratory FOUND non-labored Abdomen Abdominal: FOUND soft, NOT FOUND distended, NOT FOUND tender Musculoskeletal Musculoskeletal : Side: Right Hip: FOUND painful PROM, FOUND tender over trochanter Integumentary FOUND dry, FOUND pink, FOUND warm Neurologic FOUND no deficits (Limited exam due to underlying dementia.) Psychiatric FOUND alert, FOUND other (Dementia.) Laboratory Laboratory Tests Test 10/31/16 08:05 10/31/16 08:08 10/31/16 10:35 Prothromb Time International Ratio 1.94 White Blood Count 5.0T/MM3 Red Blood Count 3.84M/MM3 Hemoglobin 11.9GM/DL Hematocrit 35.7% Mean Corpuscular Volume 93.0UM3 Mean Corpuscular Hemoglobin 31.0UUG Mean Corpuscular Hemoglobin Concent 33.3GM/DL RDW Standard Deviation 48.1FL Platelet Count 120T/MM3 Mean Platelet Volume 11.7UM3 Immature Granulocyte % (Auto) 0.2% Neutrophils (%) (Auto) 68.2% Lymphocytes (%) (Auto) 17.0% Monocytes (%) (Auto) 8.6% Eosinophils (%) (Auto) 4.8% Basophils (%) (Auto) 1.2% Absolute Immature Granulocyte (auto 0.01T/MM3 Absolute Neutrophils (auto) 3.4T/MM3 Absolute Lymphocytes (auto) 0.9T/MM3 Absolute Monocytes (auto) 0.4T/MM3 Absolute Eosinophils (auto) 0.2T/MM3 Absolute Basophils (auto) 0.1T/MM3 Turbidity < 20 Sodium Level 144MEQ/L Potassium Level 4.1MEQ/L Chloride Level 100MEQ/L Carbon Dioxide Level 28MEQ/L Anion Gap 16MEQ/L Blood Urea Nitrogen 31.0MG/DL Creatinine 1.2MG/DL Glomerular Filtration Rate Calc 57 BUN/Creatinine Ratio 26RATIO Glucose Level 107MG/DL Calculated Osmolality 284MOSM/KG Calcium Level 9.6MG/DL Total Bilirubin 1.10MG/DL Icterus Index < 2 Aspartate Amino Transf (AST/SGOT) 38U/L Alanine Aminotransferase (ALT/SGPT) 43U/L Alkaline Phosphatase 223U/L Total Protein 7.4G/DL Albumin 4.3G/DL Globulin 3.1G/DL Albumin/Globulin Ratio 1.4RATIO Chemistry Specimen Hemolysis 26 Urine Collection Type Johnson indwelling Urine Color Yellow Urine Turbidity Clear Urine pH 5.5 Urine Specific [place] 1.015 Urine Protein Negative Urine Glucose (UA) Negative Urine Ketones Trace Urine Blood Negative Urine Nitrite Negative Urine Bilirubin Negative Urine Urobilinogen 0.2EU/DL Urine Leukocyte Esterase Negative Urinalysis Comment Microscopic not ind. Radiology Radiology Closed, displaced, IT fx of the right hip. ANTONY YANES October 31, 2016 13:19
[2016-10-31 13:26] VITALS: BP 138/88; PULSE 82; RESP 17; TEMP 99.2; O2SAT 96
[2016-10-31] MEDS ORDERED: PNEUMOCOCCAL 13 VACCINE 0.5 ML SYRINGE IM ONE (15:00)
[2016-10-31 15:30] VITALS: BP 128/67; PULSE 78; RESP 14; TEMP 99.4; O2SAT 100
--- NOTE | 2016-10-31 17:10 | NUR ---
SURGEON CONTACT DR. LO IN ROOM TO DISCUSS STATUS/PLAN OF CARE WITH PT'S FAMILY
[2016-10-31 18:20] LABS: INR 2.05 (0.77-1.03); PROTHROMBIN TIME 22.4 SEC (9.48-12.52)
--- NOTE | 2016-10-31 18:41 | NUR ---
SUMMARY PT CURRENTLY IN HALLWAY DUE TO [place]NA[place] WARNING. PT CONTINUES TO SLEEP. IS EASILY ROUSED BY VERBAL STIMULI BUT GOES RIGHT BACK TO SLEEP. FAMILY AT BEDSIDE. BUCKS TRACTION STILL IN PLACE.
[2016-10-31 20:00] VITALS: PULSE 77; RESP 16
[2016-10-31 21:45] VITALS: BP 141/65; PULSE 85; RESP 16; TEMP 98.2; O2SAT 98
[2016-11-01 01:03] VITALS: BP 143/75; PULSE 90; RESP 16; TEMP 98.6; O2SAT 100
[2016-11-01] MEDS: HYDROMORPHONE 2mg/ml INJECTION IV PRN (01:17)
[2016-11-01 05:38] LABS: BASOPHILS % (AUTO) 0.3 % (0-2); EOSINOPHILS # (AUTO) 0.1 T/MM3 (0-0.5); EOSINOPHILS % (AUTO) 1.6 % (0-4); HCT - HEMATOCRIT 33.2 % (41-53); HGB - HEMOGLOBIN 10.7 GM/DL (13.5-17.5); IMMATURE GRANULOCYTE # (AUTO) 0.02 T/MM3 (0.00-0.03); IMMATURE GRANULOCYTE % (AUTO) 0.2 % (0.0-0.5); LYMPHOCYTES # (AUTO) 0.7 T/MM3 (1-4.8); LYMPHOCYTES % (AUTO) 8.3 % (23-45); MEAN CORPUSCULAR HGB 30.3 UUG (26-34); MEAN CORPUSCULAR HGB CONC(MCHC 32.2 GM/DL (31-37); MEAN CORPUSCULAR VOLUME 94.1 UM3 (80-100); MEAN PLATELET VOLUME 12.1 UM3 (9.4-12.4); MONOCYTES # (AUTO) 0.6 T/MM3 (0-0.8); MONOCYTES % (AUTO) 6.7 % (0-9.0); NEUTROPHILS #(AUTO)-ABSOLUTE 7.2 T/MM3 (1.8-7.7); NEUTROPHILS % (AUTO) 82.9 % (33-66); RED BLOOD COUNT 3.53 M/MM3 (4.50-5.90); WBC - WHITE BLOOD COUNT 8.7 T/MM3 (4.5-11.0)
[2016-11-01 05:43] LABS: PROTHROMBIN TIME 21.8 SEC (9.48-12.52)
[2016-11-01 05:46] LABS: ANION GAP 12 MEQ/L (5-15); BUN/CREATININE RATIO 30 RATIO (6-26); CALCIUM 8.9 MG/DL (8.4-10.2); CHLORIDE 105 MEQ/L (98-107); CO2 - CARBON DIOXIDE 25 MEQ/L (22-30); GLOMERULAR FILTRATION RATE 70; GLUCOSE 108 MG/DL (75-110); SODIUM 142 MEQ/L (134-144)
[2016-11-01] MEDS: PANTOPRAZOLE 40 MG TABLET PO SCH (06:09)
--- NOTE | 2016-11-01 07:56 | ANESPREOP ---
Anesthesia Record Date and Time DATE: 11/01/16 TIME: 07:54 Pre-Op Diagnosis Right hip fx Proposed Surgical Procedure IM Nail Right Hip NPO since: [place] Allergies: Coded Allergies: No Known Allergies (Unverified , 10/31/16) Ht/Wt/BMI Height: 5 ' 11.00 " Weight: 61.300 kg BMI: 18.9 kg/m2 Vital Signs Date Time Temp Pulse Resp B/P Pulse Ox O2 Delivery O2 Flow Rate FiO2 11/01/16 01:03 98.6 90 16 143/75 100 Nasal Cannula 2.00 Medications Inpatient Medications Current Medications Medications (Trade) Dose Ordered Sig/Artemio Start Time Stop Time Status Last Admin Dose Admin Sodium Chloride (Normal Saline IV) 1,000 ml @ 80 mls/hr [id number] 10/31/16 09:00 10/31/16 21:58 80 MLS/HR Acetaminophen/ Hydrocodone Bitart (Delton 7.5/325) 1-2 TABS Q6H PRN 10/31/16 09:00 10/31/16 10:43 1 TAB Tramadol HCl (Ultram) 50-100 MG Q4H PRN 10/31/16 09:00 Naproxen Sodium (ALEVE 220 mg) 440 mg BID PRN 10/31/16 09:00 Hydromorphone HCl (Dilaudid) 0.5-1 MG Q1H PRN 10/31/16 09:00 11/01/16 01:17 1 MG Ondansetron HCl (Zofran) 4 mg Q6H PRN 10/31/16 09:00 Pantoprazole Sodium (Protonix) 40 mg ACB 11/01/16 06:30 Magnesium Hydroxide (Mom) 30 ml DAILY PRN 10/31/16 09:00 Senna/Docusate Sodium 1 tab 1 tab BID 10/31/16 09:00 10/31/16 21:58 1 TAB Cefazolin Sodium 2 g/Sodium Chloride 100 ml @ 200 mls/hr Q8H 10/31/16 09:00 10/31/16 09:37 DC Cefazolin Sodium/ Sodium Chloride (Kefzol/NS) 100 ml @ 200 mls/hr Q8H 10/31/16 09:00 10/31/16 09:37 DC Acetaminophen (Tylenol Extra Strength) 500 Mg Tablet, 500 MG PO BID, (Reported) Last Taken: on 10/30/16 1600 Aspirin (Aspirin) 81 Mg Tab.chew, 81 MG PO DAILY, (Reported) Last Taken: on 10/30/16 0800 Carvedilol (Coreg) 12.5 Mg Tablet, 12.5 MG PO BIDWM, (Reported) Last Taken: on 10/30/16 1700 Donepezil HCl (Aricept) 10 Mg Tablet, 10 MG PO HS, (Reported) Last Taken: on 10/30/161999 Famotidine (Famotidine) 20 Mg Tablet, 20 MG PO DAILY, (Reported) Last Taken: on 10/30/161999 Fluticasone Propionate (Fluticasone Propionate ) 16 Gm [place].susp, 1 SPRAY NS DAILY, (Reported) Last Taken: on 10/30/16 0900 Furosemide (Furosemide) 40 Mg Tablet, 40 MG PO DAILY, (Reported) Last Taken: on 10/30/16 0700 Lorazepam (Lorazepam) 0.5 Mg Tablet, 0.25 MG PO BID PRN for ANXIETY, (Reported) Last Taken: on Unknown Date & Time Memantine HCl (Namenda) 10 Mg Tablet, 10 MG PO BID, (Reported) Last Taken: on 10/30/161799 Potassium Chloride (Potassium Chloride) 10 Meq Capsule.er, 20 MEQ PO BID, (Reported) Last Taken: on 10/30/16 1700 Sertraline (Zoloft) 100 Mg Tablet, 100 MG PO DAILY, (Reported) Last Taken: on 10/30/16 0700 Warfarin Sodium (Warfarin Sodium) 2.5 Mg Tablet , 2.5 MG PO DAILY, (Reported) Last Taken: on 10/30/16 1800 Currently on Beta [place]: Yes (Lopressor 5mg IV today) Beta [place] Last Taken: 11/01/16 Medical/Surgical History Anesthesia PMH: Reports: *Hypertension, Anesthesia Reactions (NAUSEA WITH ETHER ), Arthritis, CHF (new DX), Cancer (PROSTATE CA 2011 PER HISTORY), Clotting Problems (ON WARFARIN), Other (dementia), Reflux, Renal Disease (CHRONIC KIDNEY DISEASE STAGE III - PT DENIES), Denies: *Angina (PER HISTORY BUT PT DENIES), * Diabetes, *Dyspnea (PER HISTORY), *GA, Asthma, Blood Transfusion Reac, COPD, CVA /Stroke/TIA, Deep Vein Thrombosis, Glaucoma, Hepatitis, Hiatal Hernia, Malignant Hyperthermia, Pacemaker, Pneumonia, Seizures, Sleep Apnea, Thyroid Disease, Tuberculosis Smoking Status: Unknown if ever smoked Use Chewing Tobacco?: No Second Hand Exposure: No Substance Use Type: does not use Alcohol Intake: none Past Surgical History Orthopedic Surgeries: Yes - BACK, stenosis, chipped off calcium Abdominal Surgeries: Yes - LT ING HERNIA Genitourinary Surgeries: Yes - PROSTATE BX Cardiac Surgeries: No Endocrine Surgeries: No Reproductive Surgeries: No Neurological Surgeries: No Ear Surgeries: No Nose Surgeries: No Throat Surgeries: Yes - EGD; TONSILS Other Surgeries: Yes - L CATARACT, COLONOSCOPY PER HISTORY Anesthesia Adverse Reactions: FOUND none Pertinent Findings Laboratory Tests 11/01/16 03:54 Test 11/01/16 03:54 Prothromb Time International Ratio 2.00 (0.77-1.03) EKG Rhythm: Atrial Fibrillation Physical Exam Respiratory: Bilat breath sounds equal, Lungs clear Cardiovascular: FOUND Regular rate, rhythm, FOUND No murmur Airway Assessment Overall Assessment: May Be Diff Mask Vent., May Be Diff Intubation ASA: 3 Plan Anesthesia Plan: TIVA Discussion Discussed risks/options/alternatives of anesthesia and questions answered. Patient consents. Nursing pain assessment noted. Present: Family Member Attestation Statement Prior to the delivery of any anesthetic medication, I examined the patient, developed the plan, obtained the patient's consent and discussed the risk and benefits of the procedure with the patient/guardian. RITA DAMIAN CRNA November 01, 2016 07:56
[2016-11-01 08:02] VITALS: BP 164/69; PULSE 82; RESP 16; TEMP 99.1; O2SAT 98
[2016-11-01] MEDS ORDERED: NORMAL SALINE 500 ML IV SCH (08:51)
[2016-11-01 09:08] VITALS: PULSE 85
[2016-11-01] MEDS: SENNA + DOCUSATE TAB PO SCH ×2 (09:14→21:28)
[2016-11-01] MEDS: NORMAL SALINE 1,000 ML IV SCH ×2 (10:02→12:01)
--- NOTE | 2016-11-01 10:25 | NUR ---
ALBERTINA CM VISITED PT AND EXPLAINED ROLE. PT PLANS TO RETURN TO [facility] POST HOSPITAL STAY. PT DECLINED IRU CONSULT STATING THAT HE DID NOT SEE ANY NEED FOR IT. PT IS WILLING TO RECONSIDER POST SURGERY. PT IS AWARE TO CONTACT CM IF NEEDS ARISE.
--- NOTE | 2016-11-01 10:40 | NUR ---
OT/PT NOTE: Pt still in [place] traction and has not had surgery yet. RN states pt to receive plasma today and surgery date is unsure at this time. Any questions, please call [phone] or [phone]. Thank you.
--- NOTE | 2016-11-01 10:48 | PNPDOC ---
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 Right hip fracture. He is alert and pleasant, resting in bed. His only complaint is his arm where the blood pressure cuff is taking his blood pressure currently. Currently on 2 liters oxygen by nasal cannula. He denies having any hip pain on examination. He continues to be in [place]'s traction. Was elevated at 2.0. Objective Vital Signs Vital signs Vital Signs Date Time Temp Pulse Resp B/P Pulse Ox O2 Delivery O2 Flow Rate FiO2 11/01/16 09:08 85 11/01/16 08:02 99.1 16 164/69 98 Nasal Cannula 3.00 Height (Feet): 5 Height (Inches): 11.00 Weight (Kilograms): 61.400 General General Appearance: Alert, Orientated x 1, Cooperative, No Acute Distress Eyes (Brief) Eyes: FOUND: EOMI ENMT (Brief) ENMT: FOUND: mucosa moist, normal dentition, NOT FOUND: pharnyx erythema Neck (Brief) Neck: FOUND: midline, NOT FOUND: adenopathy, carotid bruits, tracheal deviation Respiratory (Brief) Respiratory: FOUND: clear all tarango, equal bilaterally, NOT FOUND: wheezes Cardiovascular (Brief) Cardiac: FOUND: regular rate, regular rhythm, NOT FOUND: murmur, pedal edema Capillary Refill: <2 sec Abdomen (Brief) Abdominal: FOUND: BS normo active x4, soft, NOT FOUND: distended, tender Extremities (Brief) Extremity : Side: Right Extremity: other (hip fracture) Lymphatic (Brief) Lymphatic: NOT FOUND: adenopathy Musculoskeletal (Brief) Musculoskeletal: NOT FOUND: tenderness Integumentary (Brief) Integumentary: FOUND: dry, pink, warm Neurologic (Brief) Neurological: FOUND: cranial 2-12 intact Psychiatric (Brief) Psychiatric: FOUND: alert, attentive, normal affect Laboratory Laboratory Laboratory Tests 10/31/16 08:08 11/01/16 03:54 Laboratory Tests 10/31/16 08:08 11/01/16 03:54 Assessment & Plan Problems: (1) Intertrochanteric fracture of right hip Status: Acute Qualifiers: Encounter type: initial encounter Fracture type: closed Qualified Codes: S72.141A - Displaced intertrochanteric fracture of right femur, initial encounter for closed fracture (2) CHF (congestive heart failure) Status: Chronic (3) CKD (chronic kidney disease) stage 3, GFR 30-59 ml/min Status: Chronic (4) Atrial fibrillation Status: Chronic (5) Anticoagulated on Coumadin Status: Chronic Assessment & Plan: Patient was given an initial dose of 5 mg oral vitamin K, but by the evening was not yet responsive so 2nd dose was given. This is not effective by morning fresh frozen plasma may be given prior to surgery (6) HTN (hypertension) Status: Chronic (7) Dementia Status: Chronic (8) Prostate cancer Status: Resolved Plan/Intensity of Service 11/01/16 Patient did received a total of 10 milligrams of vitamin K orally yesterday. This morning. INR continues to be elevated at 2.0. We unit of fresh frozen plasma is given today Recheck INR later today as well as tomorrow morning Spoke with orthopedic team will postpone surgery until tomorrow. Otherwise, medically patient is stable. Continue with oxygen to maintain saturations. Hemoglobin stable at 10.7 Will discuss further with Dr Jarrett Code Status Do Not Resuscitate Hospital Course Summary Disclaimer The hospital course summary below is not to be considered part of the above Progress Note. Hospital Course Summary Admit patient to inpatient status under the care of Dr. Jarrett for acute right intertrochanteric hip fracture Consultation placed to Dr. Mckeon for further orthopedic evaluation and treatment. Will obtain the following laboratory studies on admission CBC, CMP, urinalysis. Regarding INR of 1.94, will give patient vitamin K 5 milligrams by mouth 1 now. Will recheck an INR this evening at 1800. Will need to start Lovenox post-operatively to bridge Coumadin until therapeutic Place Johnson cath to DD Obtain preoperative chest x-ray. Normal saline at 80 ML per hour for gentle hydration. Monitor for evidence of fluid overload. [place] and tramadol as needed for pain control. Oxygen therapy to maintain adequate saturations. Will recheck CBC and BMP tomorrow morning to follow blood counts, renal function and electrolytes. Again, patient's son request patient to be a do not resuscitate and this orders written. Will discuss further orders and plan of care with attending, Dr. Jarrett At time of discharge medical care is to return to PCP Dr Perfecto Trujillo 11/01/16 Patient did received a total of 10 milligrams of vitamin K orally yesterday. This morning. INR continues to be elevated at 2.0. We unit of fresh frozen plasma is given today Recheck INR later today as well as tomorrow morning Spoke with orthopedic team will postpone surgery until tomorrow. Otherwise, medically patient is stable. Continue with oxygen to maintain saturations. Hemoglobin stable at 10.7 Will discuss further with ZEINA Rendon APRN November 01, 2016 10:47
[2016-11-01 16:24] VITALS: BP 120/65; PULSE 91; RESP 14; TEMP 98.1; O2SAT 95
[2016-11-01 16:47] LABS: INR 1.64 (0.77-1.03)
--- NOTE | 2016-11-01 18:12 | NUR ---
END OF SHIFT REPORT AT TIMES, PATIENT A/OX3. THE DAY HAS PROGRESSED, PT HAS BECOME MORE CONFUSED. FAMILY STATES THIS IS NORMAL FOR FAMILY AND THAT HE HAS MOMENTS AT [facility] WHERE HE IS VERY LUCID AND CLEAR AND OTHER MOMENTS WERE HE IS CONFUSED. VITAL SIGNS STABLE. BEFORE AND DURING PLASMA TRANSFUSION, PATIENT DID HAVE A LOW GRADE TEMP OF 99.7 AND 99.9. SYSTEM DID NOT TELL THIS RN TO STOP TRANSFUSION. THIS RN ENCOURAGED PT TO USE I/S AND COUGH/DEEP BREATH. TEMP CAME DOWN TO 98.3 BY END OF TRANSFUSION. BEDREST CURRENTLY. 2.5 LITERS O2 VIA NASAL CANNULA. DENIES PAIN BUT BECOMES RESTLESS/FIDGETS. THIS RN HAS GIVEN PATIENT TWO NORCO 5'S DURING THE SHIFT FOR PAIN CONTROL. DENIES N/V, CHEST PAIN, AND SOA. ADEQUATE URINARY OUTPUT. WILL CONTINUE TO MONITOR.
[2016-11-01 19:27] VITALS: BP 137/73; PULSE 93; RESP 18; TEMP 96.5; O2SAT 93
[2016-11-01 23:43] VITALS: BP 144/89; PULSE 83; RESP 16; TEMP 97.9; O2SAT 97
[2016-11-02] VITALS (35 sets, daily range): BP systolic 75–162; BP diastolic 43–86; PULSE 75–115; RESP 12–20; TEMP 96.9–99.9; O2SAT 86–98
[2016-11-02] MEDS: NORMAL SALINE 1,000 ML IV SCH ×2 (00:19→22:42)
--- NOTE | 2016-11-02 05:17 | NUR ---
SHIFT SUMMARY PATIENT IS ALERT AND ORIENTED TO SELF ONLY. VITAL SIGNS ARE STABLE ON 2.5L NC. PATIENT HAS REPORTED NO PAIN, NAUSEA, OR VOMITING THIS SHIFT. PATIENT HAS MAINTAINED BEDREST WITH TRACTION. PATIENT WAS MADE NPO AT MIDNIGHT IN ANTICIPATION OF PROCEDURE TODAY. PATIENT HAS BEEN PLEASANT WITH CARES AND SLEPT THROUGH THE NIGHT.
[2016-11-02 06:01] LABS: INR 1.51 (0.77-1.03); PROTHROMBIN TIME 16.5 SEC (9.48-12.52)
[2016-11-02] MEDS: PANTOPRAZOLE 40 MG TABLET PO SCH (06:06)
[2016-11-02] MEDS: SENNA + DOCUSATE TAB PO SCH ×2 (08:06→21:30)
[2016-11-02] MEDS ORDERED: NORMAL SALINE 500 ML IV SCH (08:38)
[2016-11-02] MEDS ORDERED: LORAZEPAM 0.5 MG TABLET PO PRN (10:45)
[2016-11-02] MEDS ORDERED: METOPROLOL 5mg/5ml INJECTION IV PRN (10:45)
[2016-11-02] MEDS ORDERED: FUROSEMIDE 20 MG/2 ML INJECTION IV ONE (10:45)
--- NOTE | 2016-11-02 10:54 | PNPDOC ---
ZEINA GALLARDO V REMINGTON 11/02/16 1045: Subjective Date DATE: 11/02/16 TIME: 0830 Subjective Mr Mason is seen early this morning. He is comfortably resting in bed without evidence of distress. He denies having any pain or feeling short of breath. Remains in [place] traction to right leg. Heart rate noted to be mildly tachy at 110 as he has known chronic A-fib. Noted weight up this morning 5 KG. Objective Vital Signs Vital signs Vital Signs Date Time Temp Pulse Resp B/P Pulse Ox O2 Delivery O2 Flow Rate FiO2 11/02/16 08:30 115 20 11/02/16 08:28 96.9 160/86 92 Nasal Cannula 2.50 Height (Feet): 5 Height (Inches): 11.00 Weight (Kilograms): 66.000 General General Appearance: Alert, Orientated x 3, Cooperative, No Acute Distress Eyes (Brief) Eyes: FOUND: EOMI ENMT (Brief) ENMT: FOUND: mucosa moist, normal dentition, NOT FOUND: pharnyx erythema Neck (Brief) Neck: FOUND: midline, NOT FOUND: adenopathy, carotid bruits, tracheal deviation Respiratory (Brief) Respiratory: FOUND: clear all tarango, equal bilaterally, NOT FOUND: wheezes Cardiovascular (Brief) Cardiac: FOUND: regular rate (Tachycardic, A-fib), NOT FOUND: murmur, pedal edema, regular rhythm Capillary Refill: <2 sec Abdomen (Brief) Abdominal: FOUND: BS normo active x4, soft, NOT FOUND: distended, tender Lymphatic (Brief) Lymphatic: NOT FOUND: adenopathy Musculoskeletal (Brief) Musculoskeletal: NOT FOUND: tenderness Integumentary (Brief) Integumentary: FOUND: dry, pink, warm Neurologic (Brief) Neurological: FOUND: cranial 2-12 intact Psychiatric (Brief) Psychiatric: FOUND: alert, attentive, normal affect, oriented Laboratory Laboratory Laboratory Tests 11/01/16 03:54 Laboratory Tests 11/01/16 03:54 Assessment & Plan Problems: (1) Intertrochanteric fracture of right hip Status: Acute Qualifiers: Encounter type: initial encounter Fracture type: closed Qualified Codes: S72.141A - Displaced intertrochanteric fracture of right femur, initial encounter for closed fracture (2) CHF (congestive heart failure) Status: Chronic (3) CKD (chronic kidney disease) stage 3, GFR 30-59 ml/min Status: Chronic (4) Atrial fibrillation Status: Chronic (5) Anticoagulated on Coumadin Status: Chronic Assessment & Plan: Patient was given an initial dose of 5 mg oral vitamin K, but by the evening was not yet responsive so 2nd dose was given. This is not effective by morning fresh frozen plasma may be given prior to surgery (6) HTN (hypertension) Status: Chronic (7) Dementia Status: Chronic (8) Prostate cancer Status: Resolved Plan/Intensity of Service 11/02/16 INR remains elevated this morning at 1.5. FFP 1 unit given today. Will recheck INR at 11 a.m. Hopeful for scheduled surgery at noon today. Regarding tachycardia will give patient a one-time dose of IV Lopressor as beta stone has been on hold preoperatively. Will also give 20 grams of IV Lasix 1 for diuresis. Routine home medications ordered to resume this evening. Will discuss with orthopedic team regarding anticoagulation. Patient will will require Lovenox bridge with Coumadin until therapeutic. May need to wait and initiate this tomorrow. Check CBC and BMP tomorrow morning to follow blood counts, renal function, electrolytes Plan of care discuss further with attending, Dr. Jarrett (covering hospitalist) 1056- Nursing staff called to report hives and itching to anterior chest during FFP transfusion. Will give one-time dose of Benadryl, stop transfusion and reevaluate patient status. Code Status Do Not Resuscitate Hospital Course Summary Disclaimer The hospital course summary below is not to be considered part of the above Progress Note. Hospital Course Summary Admit patient to inpatient status under the care of Dr. Jarrett for acute right intertrochanteric hip fracture Consultation placed to Dr. Mckeon for further orthopedic evaluation and treatment. Will obtain the following laboratory studies on admission CBC, CMP, urinalysis. Regarding INR of 1.94, will give patient vitamin K 5 milligrams by mouth 1 now. Will recheck an INR this evening at 1800. Will need to start Lovenox post-operatively to bridge Coumadin until therapeutic Place Johnson cath to DD Obtain preoperative chest x-ray. Normal saline at 80 ML per hour for gentle hydration. Monitor for evidence of fluid overload. [place] and tramadol as needed for pain control. Oxygen therapy to maintain adequate saturations. Will recheck CBC and BMP tomorrow morning to follow blood counts, renal function and electrolytes. Again, patient's son request patient to be a do not resuscitate and this orders written. Will discuss further orders and plan of care with attending, Dr. Jarrett At time of discharge medical care is to return to PCP Dr Perfecto Trujillo 11/01/16 Patient did received a total of 10 milligrams of vitamin K orally yesterday. This morning. INR continues to be elevated at 2.0. We unit of fresh frozen plasma is given today Recheck INR later today as well as tomorrow morning Spoke with orthopedic team will postpone surgery until tomorrow. Otherwise, medically patient is stable. Continue with oxygen to maintain saturations. Hemoglobin stable at 10.7 Will discuss further with Dr Jarrett 11/02/16 INR remains elevated this morning at 1.5. FFP 1 unit given today. Will recheck INR at 11 a.m. Hopeful for scheduled surgery at noon today. Regarding tachycardia will give patient a one-time dose of IV Lopressor as beta stone has been on hold preoperatively. Will also give 20 grams of IV Lasix 1 for diuresis. Routine home medications ordered to resume this evening. Will discuss with orthopedic team regarding anticoagulation. Patient will will require Lovenox bridge with Coumadin until therapeutic. May need to wait and initiate this tomorrow. Check CBC and BMP tomorrow morning to follow blood counts, renal function, electrolytes Plan of care discuss further with attending, Dr. Jarrett (covering hospitalist) 1055- Nursing staff called to report hives and itching to anterior chest during FFP transfusion. Will give one-time dose of Benadryl, stop transfusion and reevaluate patient status. WILLIAM JARRETT MD 11/02/162037: Assessment & Plan Assessment Have read and agree with the soap note above from nurse practitioner Zeina Gallardo. Patient appears to have gone through the ORIF without incident. He is still resting but will wake to conversation with him. Transfusion reaction appears to been minor responsive to treatment. Family is asking about physical therapy and I've deferred this to orthopedics wishes as I've not yet seen the report on surgical procedure ZEINA GALLARDO APRN November 02, 2016 10:45 WILLIAM JARRETT MD November 02, 2016 20:38
[2016-11-02] MEDS ORDERED: CEFAZOLIN 1 GRAM INJECTION IV ONE (11:00)
[2016-11-02] MEDS ORDERED: CEFAZOLIN 2 G in NORMAL SALINE 100 ML IV ONE (11:00)
[2016-11-02] MEDS ORDERED: DiphenhydrAMINE 50 MG/ML INJECTION IV ONE (11:00)
[2016-11-02] MEDS ORDERED: GENTAMICIN 80 MG/2 ML INJECTION ONE (11:06)
[2016-11-02] MEDS ORDERED: BUPIVACAINE 0.25%/EPI 1:200,000 30ml SDV ONE (11:06)
[2016-11-02] MEDS ORDERED: FAMOTIDINE 20 MG in NORMAL SALINE 50 ML IV ONE (11:15)
--- NOTE | 2016-11-02 11:30 | NUR ---
TRANSFUSION REACTION FRESH FROZEN PLASMA TRANSFUSION STARTED AT 1006. VITAL SIGNS STABLE AT START TIME OF THE TRANSFUSION; ELEVATED BLOOD PRESSURE AND HEART RATE, AFEBRILE, PT ON 2.5L O2 PER NC. FAMILY PRESENT IN ROOM WITH THE PT. PT ALERT AND ORIENTED TO PERSON ONLY R/T ADVANCED DEMENTIA. THE TRANSFUSION WAS STARTED AT A RATE OF 60CC/HR FOR THE FIRST 15 MINUTES AND WAS INCREASED TO 500CC/HR AFTER THE FIRST 15 MINUTES AND THE PT'S VITAL SIGNS REMAINED STABLE. PT'S HEART RATE REMAINED ELEVATED INTO THE 110S AND 120S DURING THE TRANSFUSION AND THIS RN RECEIVED A CALL FROM ZEINA GALLARDO APRN AT 1043 TO GIVE A PRN DOSE OF LOPRESSOR 5MG IV. AT THIS TIME PT NOTED TO BE ITCHING CHEST. THE TRANSFUSION WAS STOPPED AT THIS TIME. PT APPEARED TO HAVE QUARTER SIZED RAISED, REDDENED AREAS ON HIS CHEST THAT SLOWLY APPEARED ON HIS NECK AND THE TOP OF PT'S HEAD. ZEINA GALLARDO APRN WAS NOTIFIED IMMEDIATELY. ORDERS WERE RECEIVED TO GIVE BENADRYL 25MG IV ONCE AND PEPCID 20MG IN 50ML OF NS IV PIGGYBACK X1 DOSE. ORDERS WERE IMPLEMENTED. THE ELEVATED AREAS OF REDNESS APPEARED TO DECREASE AND THE PT WAS SEEN TO BE ITCHING LESS AFTER APPROXIMATELY 20 MINUTES AFTER ADMINISTRATION. VITAL SIGNS REMAINED STABLE THROUGHOUT TRANSFUSION REACTION. REMAINING PLASMA WAS TAKEN TO LAB AND GIVEN TO
[2016-11-02 11:39] LABS: INR 1.43 (0.77-1.03); PROTHROMBIN TIME 15.7 SEC (9.48-12.52)
--- NOTE | 2016-11-02 11:42 | NUR ---
OFF UNIT OFF UNIT VIA HOSPITAL BED WITH SURGERY STAFF FOR PROCEDURE. O2 2.5L PER NC. IVF INFUSING. SCD TO LEFT LOWER EXTREMITY. FAMILY ACCOMPANIED TO SURGERY WAITING AREA.
[2016-11-02] MEDS ORDERED: FENTANYL 100mcg/2ml INJECTION ONE (11:49)
[2016-11-02] MEDS ORDERED: KETAMINE 500mg/10ml INJECTION ONE (11:53)
[2016-11-02] MEDS ORDERED: SALINE FLUSH 10ml SYRINGE ONE (11:55)
[2016-11-02] MEDS ORDERED: PROPOFOL 200mg 20 ML IV ONE (12:50)
[2016-11-02] MEDS ORDERED: PROPOFOL 500mg 50 ML IV ONE (12:50)
--- NOTE | 2016-11-02 13:14 | DI ---
Indication: ITS.REASON: ORIF RIGHT HIP PROCEDURE: RF HIP RIGHT 2 VIEW: Encounter: Initial Comparison: Pelvis CT dated October 31, 2016 Findings: Seven fluoroscopic spot images are submitted for interpretation. Images show open reduction and internal fixation of the right femoral neck fracture with placement of an intramedullary nail and compression screw. Distal interlocking screw. Impression: Fluoroscopy as above. Fluoroscopy time is 96 seconds. Fluoroscopy dose is 1590 mRad. .
--- NOTE | 2016-11-02 13:22 | ANESPO ---
Post-Op Note Date 11/02/16 Time: 13:22 Status Vital Signs Date Time Temp Pulse Resp B/P Pulse Ox O2 Delivery O2 Flow Rate FiO2 11/02/16 11:36 97.0 95 20 149/73 93 Nasal Cannula 2.00 Respiratory Function: Airway patent, Regular respirations Cardiovascular Function: Irregular pulse Telemetry Pattern: A fib Pain Level Intensity: 0 Unable to Assess Pain Due To: CONFUSION Hydration: IV infusing Complications during Recovery None apparent Follow-Up Instructions Instructions Per Surgeon RITA DAMIAN CRNA November 02, 2016 13:22
--- NOTE | 2016-11-02 14:25 | NUR ---
ARRIVED TO FLOOR PT ARRIVED BACK TO THE FLOOR AT THIS TIME IN BED. PT DROWSY AT THIS TIME. PT VITAL SIGNS STABLE, PT ON 3L O2 PER NC. FAMILY PRESENT. NO CONCERNS NOTED. WILL CONTINUE TO MONITOR.
[2016-11-02] MEDS ORDERED: NOZIN NASAL SWAB NS ONE (15:15)
[2016-11-02] MEDS: POTASSIUM CL. 10mEq CAP PO SCH (17:30)
[2016-11-02] MEDS: CARVEDILOL 12.5 MG TABLET PO SCH (17:30)
--- NOTE | 2016-11-02 19:21 | NUR ---
PROGRESS NOTE PT IS RESTING IN BED, BED ALARM ACTIVATED. THE PT HAS BEEN BACK FROM SURGERY FOR SEVERAL HOURS AND HAS BEEN RESTING SINCE RETURNING. THE PT VITAL SIGNS HAVE REMAINED STABLE, ON 3L OF O2 PER NC. THE PT WAS NOT GIVEN HIS EVENING MEDICATIONS BECAUSE HE HAS NOT BEEN AWAKE ENOUGH TO SIT UP AND DRINK WATER AT THIS TIME. DRESSING TO RIGHT HIP IS C/D/I. NO CONCERNS NOTED AT THIS TIME.
[2016-11-02] MEDS: CEFAZOLIN 2 G in NORMAL SALINE 100 ML IV SCH (20:13)
[2016-11-02] MEDS: MEMANTINE 10 MG TABLET PO SCH (21:30)
[2016-11-02] MEDS: DONEPEZIL 10 MG TABLET PO SCH (21:30)
[2016-11-02] MEDS: ACETAMINOPHEN 500 MG TABLET PO SCH (21:31)
[2016-11-02] MEDS: ENOXAPARIN 40 MG/0.4 ML INJECTION SQ SCH (21:34)
[2016-11-03] VITALS (9 sets, daily range): BP systolic 105–154; BP diastolic 60–90; PULSE 63–96; RESP 16–18; TEMP 97.3–98.6; O2SAT 93–99
--- NOTE | 2016-11-03 03:59 | NUR ---
PROVIDER NOTIFICATION Notified Dr. Álvarez via [employer] that patient had not had a diet restarted after surgery. Discussed that patient had been on a Regular diet prior to NPO for surgery. Dr Álvarez okayed to resume previous diet. Order entered by this RN.
[2016-11-03] MEDS: CEFAZOLIN 2 G in NORMAL SALINE 100 ML IV SCH (04:37)
[2016-11-03] MEDS: NOZIN NASAL SWAB NS SCH ×3 (04:37→17:21)
--- NOTE | 2016-11-03 05:06 | NUR ---
SHIFT SUMMARY PATIENT IS ALERT AND ORIENTED TO SELF ONLY THIS SHIFT. PATIENT HAS BEEN HYPERTENSIVE THIS SHIFT, THOUGH OTHER VITAL SIGNS ARE STABLE. PATIENT HAS RESTED SINCE RETURN FROM SURGERY YESTERDAY, WAKING ONLY FOR CARES. PATIENT HAS NOT BEEN UP FROM BED AT THIS TIME, BUT HAS BEEN TURNED Q2, AVOIDING LYING ON BACK TO PREVENT PRESSURE TO REDDENED BOTTOM. [place] IS PATENT AND DRAINING. PATIENT HAS DENIED PAIN, SHORTNESS OF BREATH, NAUSEA, AND VOMITING THIS SHIFT. WILL CONTINUE TO MONITOR.
[2016-11-03 05:35] LABS: BASOPHILS % (AUTO) 0.1 % (0-2); EOSINOPHILS % (AUTO) 0.2 % (0-4); HCT - HEMATOCRIT 31.5 % (41-53); HGB - HEMOGLOBIN 10.3 GM/DL (13.5-17.5); IMMATURE GRANULOCYTE # (AUTO) 0.03 T/MM3 (0.00-0.03); IMMATURE GRANULOCYTE % (AUTO) 0.4 % (0.0-0.5); LYMPHOCYTES # (AUTO) 0.8 T/MM3 (1-4.8); LYMPHOCYTES % (AUTO) 9.3 % (23-45); MEAN CORPUSCULAR HGB 30.7 UUG (26-34); MEAN CORPUSCULAR HGB CONC(MCHC 32.7 GM/DL (31-37); MEAN CORPUSCULAR VOLUME 93.8 UM3 (80-100); MEAN PLATELET VOLUME 12.7 UM3 (9.4-12.4); MONOCYTES # (AUTO) 0.8 T/MM3 (0-0.8); MONOCYTES % (AUTO) 9.5 % (0-9.0); NEUTROPHILS #(AUTO)-ABSOLUTE 6.9 T/MM3 (1.8-7.7); NEUTROPHILS % (AUTO) 80.5 % (33-66); RED BLOOD COUNT 3.36 M/MM3 (4.50-5.90); WBC - WHITE BLOOD COUNT 8.6 T/MM3 (4.5-11.0)
[2016-11-03 05:38] LABS: INR 1.51 (0.77-1.03); PROTHROMBIN TIME 16.5 SEC (9.48-12.52)
[2016-11-03 05:47] LABS: ANION GAP 10 MEQ/L (5-15); BUN/CREATININE RATIO 37 RATIO (6-26); CHLORIDE 107 MEQ/L (98-107); CO2 - CARBON DIOXIDE 27 MEQ/L (22-30); GLOMERULAR FILTRATION RATE 70; GLUCOSE 137 MG/DL (75-110); POTASSIUM 3.5 MEQ/L (3.6-5); SODIUM 144 MEQ/L (134-144)
[2016-11-03] MEDS: PANTOPRAZOLE 40 MG TABLET PO SCH (06:35)
--- NOTE | 2016-11-03 08:18 | PDORTHOPN ---
Subjective Date DATE: 11/03/16 TIME: 08:13 Subjective Mr Mason points to the proximal incision area and reports some discomfort. He states that he remembers he broke his hip had surgery. He is asking for some water and points to the floor where he dropped his cup. No family is here this AM. Objective Vital Signs Vital signs Vital Signs 11/02/16 11/02/16 11/03/16 11/03/16 20:19 20:26 00:20 04:40 Temp 98.6 97.3 Pulse 89 96 82 Resp 20 16 16 B/P 162/83 137/79 154/90 Pulse Ox 96 99 93 O2 Delivery Nasal Cannula Nasal Cannula Nasal Cannula Nasal Cannula O2 Flow Rate 3.00 3.00 3.00 3.00 11/03/16 11/03/16 07:45 07:50 Temp 97.7 Pulse 91 91 Resp 16 16 B/P 144/79 Pulse Ox 98 O2 Delivery Nasal Cannula O2 Flow Rate 3.00 Height (Feet): 5 Height (Inches): 11.00 Weight (Kilograms): 66.000 General General Appearance: Alert, No Acute Distress Respiratory (Brief) Respiratory Brief: FOUND: non-labored Cardiovascular (Brief) Cardiac: FOUND: pedal pulses intact Surgical Site Incision: FOUND: dressing intact, no drainage Integumentary (Brief) Integumentary Brief: FOUND dry, FOUND pink, FOUND warm Neurologic (Brief) Neurological Brief: FOUND: extremities w/o deficits, neuro intact Psychiatric (Brief) Psychiatric Brief: FOUND: alert, NOT FOUND: oriented Laboratory Laboratory Laboratory Tests 11/03/16 04:44 Laboratory Tests 11/03/16 04:44 Assessment & Plan Problems: (1) Intertrochanteric fracture of right hip Status: Acute Qualifiers: Encounter type: initial encounter Fracture type: closed Qualified Codes: S72.141A - Displaced intertrochanteric fracture of right femur, initial encounter for closed fracture Assessment & Plan: x WBAT, mobilize with PT / OT. Lovenox - Coumadin & SCD's, Medical mgmt per hospitalist. Hospital Course Summary Disclaimer The visit summary below is not to be considered part of the above Progress Note. Hospital Course Admit patient to inpatient status under the care of Dr. Jarrett for acute right intertrochanteric hip fracture Consultation placed to Dr. Mckeon for further orthopedic evaluation and treatment. Will obtain the following laboratory studies on admission CBC, CMP, urinalysis. Regarding INR of 1.94, will give patient vitamin K 5 milligrams by mouth 1 now. Will recheck an INR this evening at 1800. Will need to start Lovenox post-operatively to bridge Coumadin until therapeutic Place Johnson cath to DD Obtain preoperative chest x-ray. Normal saline at 80 ML per hour for gentle hydration. Monitor for evidence of fluid overload. [place] and tramadol as needed for pain control. Oxygen therapy to maintain adequate saturations. Will recheck CBC and BMP tomorrow morning to follow blood counts, renal function and electrolytes. Again, patient's son request patient to be a do not resuscitate and this orders written. Will discuss further orders and plan of care with attending, Dr. Jarrett At time of discharge medical care is to return to PCP Dr Perfecto Trujillo 11/01/16 Patient did received a total of 10 milligrams of vitamin K orally yesterday. This morning. INR continues to be elevated at 2.0. We unit of fresh frozen plasma is given today Recheck INR later today as well as tomorrow morning Spoke with orthopedic team will postpone surgery until tomorrow. Otherwise, medically patient is stable. Continue with oxygen to maintain saturations. Hemoglobin stable at 10.7 Will discuss further with Dr Jarrett 11/02/16 INR remains elevated this morning at 1.5. FFP 1 unit given today. Will recheck INR at 11 a.m. Hopeful for scheduled surgery at noon today. Regarding tachycardia will give patient a one-time dose of IV Lopressor as beta stone has been on hold preoperatively. Will also give 20 grams of IV Lasix 1 for diuresis. Routine home medications ordered to resume this evening. Will discuss with orthopedic team regarding anticoagulation. Patient will will require Lovenox bridge with Coumadin until therapeutic. May need to wait and initiate this tomorrow. Check CBC and BMP tomorrow morning to follow blood counts, renal function, electrolytes Plan of care discuss further with attending, Dr. Jarrett (covering hospitalist) 1053- Nursing staff called to report hives and itching to anterior chest during FFP transfusion. Will give one-time dose of Benadryl, stop transfusion and reevaluate patient status. ANTONY YANES November 03, 2016 08:17
[2016-11-03] MEDS: ACETAMINOPHEN 500 MG TABLET PO SCH ×2 (08:34→22:07)
[2016-11-03] MEDS: MEMANTINE 10 MG TABLET PO SCH ×2 (08:35→22:06)
[2016-11-03] MEDS: CARVEDILOL 12.5 MG TABLET PO SCH ×2 (08:35→17:22)
[2016-11-03] MEDS: POTASSIUM CL. 10mEq CAP PO SCH ×2 (08:35→17:22)
[2016-11-03] MEDS: SERTRALINE 100 MG TABLET PO SCH (08:36)
[2016-11-03] MEDS: FAMOTIDINE 20 MG TABLET PO SCH (08:36)
[2016-11-03] MEDS: SENNA + DOCUSATE TAB PO SCH ×2 (08:36→22:07)
[2016-11-03] MEDS: FUROSEMIDE 40 MG TABLET PO SCH (08:36)
--- NOTE | 2016-11-03 09:14 | PNPDOC ---
ZEINA GALLARDO V [facility] 11/03/16 0909: Subjective Date DATE: 11/03/16 TIME: 09:04 Subjective Malcolm is seen today in follow up post-op. He is resting in bed comfortably, and is alert during conversation. He continues on 3 liters of oxygen by nasal cannula without evidence of respiratory distress. He denies having chest pain, or GI complaints. Complains of mild right hip pain. Right hip incision is dry and intact without erythema or drainage. Objective Vital Signs Vital signs Vital Signs Date Time Temp Pulse Resp B/P Pulse Ox O2 Delivery O2 Flow Rate FiO2 11/03/16 07:50 91 16 11/03/16 07:45 97.7 144/79 98 Nasal Cannula 3.00 Height (Feet): 5 Height (Inches): 11.00 Weight (Kilograms): 66.000 General General Appearance: Alert, Orientated x 2, Cooperative, No Acute Distress Eyes (Brief) Eyes: FOUND: EOMI ENMT (Brief) ENMT: FOUND: mucosa moist, normal dentition, NOT FOUND: pharnyx erythema Neck (Brief) Neck: FOUND: midline, NOT FOUND: adenopathy, carotid bruits, tracheal deviation Respiratory (Brief) Respiratory: FOUND: clear all tarango, equal bilaterally, NOT FOUND: wheezes Cardiovascular (Brief) Cardiac: FOUND: regular rate, regular rhythm, NOT FOUND: murmur, pedal edema Capillary Refill: <2 sec Abdomen (Brief) Abdominal: FOUND: BS normo active x4, soft, NOT FOUND: distended, tender Lymphatic (Brief) Lymphatic: NOT FOUND: adenopathy Musculoskeletal (Brief) Musculoskeletal: FOUND: tenderness Integumentary (Brief) Integumentary: FOUND: dry, pink, warm Comments Right hip incision, dressing dry without erythema or drainage Neurologic (Brief) Neurological: FOUND: cranial 2-12 intact Psychiatric (Brief) Psychiatric: FOUND: alert, attentive, normal affect, oriented Laboratory Laboratory Laboratory Tests 11/03/16 04:44 Laboratory Tests 11/03/16 04:44 Assessment & Plan Problems: (1) Intertrochanteric fracture of right hip Status: Acute Qualifiers: Encounter type: initial encounter Fracture type: closed Qualified Codes: S72.141A - Displaced intertrochanteric fracture of right femur, initial encounter for closed fracture (2) CHF (congestive heart failure) Status: Chronic (3) CKD (chronic kidney disease) stage 3, GFR 30-59 ml/min Status: Chronic (4) Atrial fibrillation Status: Chronic (5) Anticoagulated on Coumadin Status: Chronic Assessment & Plan: Patient was given an initial dose of 5 mg oral vitamin K, but by the evening was not yet responsive so 2nd dose was given. This is not effective by morning fresh frozen plasma may be given prior to surgery (6) HTN (hypertension) Status: Chronic (7) Dementia Status: Chronic (8) Prostate cancer Status: Resolved Plan/Intensity of Service 11/03/16 Postoperatively, Mr Mason is doing well. Currently on 3 liters oxygen by nasal cannula. Will work on weaning down. He was started on Lovenox last evening. Pharmacy consult placed to aid with Coumadin dosing. She will need to be on bridge therapy until he is therapeutic. INR this morning 1.51. Further evidence of hives or reaction from FFP yesterday. Continue to monitor blood pressure as he has been intermittently elevated. Continue with Lopressor, Coreg. Potassium this morning is slightly low at 3.5. Continue with oral potassium supplementation. Will give an additional 20 milliequivalents with lunch. Will recheck CBC and BMP tomorrow morning. Follow blood counts, renal function and electrolytes Code Status Do Not Resuscitate Hospital Course Summary Disclaimer The hospital course summary below is not to be considered part of the above Progress Note. Hospital Course Summary Admit patient to inpatient status under the care of Dr. Jarrett for acute right intertrochanteric hip fracture Consultation placed to Dr. Mckeon for further orthopedic evaluation and treatment. Will obtain the following laboratory studies on admission CBC, CMP, urinalysis. Regarding INR of 1.94, will give patient vitamin K 5 milligrams by mouth 1 now. Will recheck an INR this evening at 1800. Will need to start Lovenox post-operatively to bridge Coumadin until therapeutic Place Johnson cath to DD Obtain preoperative chest x-ray. Normal saline at 80 ML per hour for gentle hydration. Monitor for evidence of fluid overload. [place] and tramadol as needed for pain control. Oxygen therapy to maintain adequate saturations. Will recheck CBC and BMP tomorrow morning to follow blood counts, renal function and electrolytes. Again, patient's son request patient to be a do not resuscitate and this orders written. Will discuss further orders and plan of care with attending, Dr. Jarrett At time of discharge medical care is to return to PCP Dr Perfecto Trujillo 11/01/16 Patient did received a total of 10 milligrams of vitamin K orally yesterday. This morning. INR continues to be elevated at 2.0. We unit of fresh frozen plasma is given today Recheck INR later today as well as tomorrow morning Spoke with orthopedic team will postpone surgery until tomorrow. Otherwise, medically patient is stable. Continue with oxygen to maintain saturations. Hemoglobin stable at 10.7 Will discuss further with Dr Jarrett 11/02/16 INR remains elevated this morning at 1.5. FFP 1 unit given today. Will recheck INR at 11 a.m. Hopeful for scheduled surgery at noon today. Regarding tachycardia will give patient a one-time dose of IV Lopressor as beta stone has been on hold preoperatively. Will also give 20 grams of IV Lasix 1 for diuresis. Routine home medications ordered to resume this evening. Will discuss with orthopedic team regarding anticoagulation. Patient will will require Lovenox bridge with Coumadin until therapeutic. May need to wait and initiate this tomorrow. Check CBC and BMP tomorrow morning to follow blood counts, renal function, electrolytes Plan of care discuss further with attending, Dr. Jarrett (covering hospitalist) 1055- Nursing staff called to report hives and itching to anterior chest during FFP transfusion. Will give one-time dose of Benadryl, stop transfusion and reevaluate patient status. 11/03/16 Postoperatively, Mr Mason is doing well. Currently on 3 liters oxygen by nasal cannula. Will work on weaning down. He was started on Lovenox last evening. Pharmacy consult placed to aid with Coumadin dosing. She will need to be on bridge therapy until he is therapeutic. INR this morning 1.51. Further evidence of hives or reaction from FFP yesterday. Continue to monitor blood pressure as he has been intermittently elevated. Continue with Lopressor, Coreg. Potassium this morning is slightly low at 3.5. Continue with oral potassium supplementation. Will give an additional 20 milliequivalents with lunch. Will recheck CBC and BMP tomorrow morning. Follow blood counts, renal function and electrolytes JENNIFER MCLEOD MD 11/03/16 6144: Assessment & Plan Assessment I have independently evaluated and examined this patient. I reviewed the chart, the patient's history, and the [facility]'s documented findings as above. We discussed and formulated the assessment and plan as above with additions as below: Mr. Mason was up in the chair when seen, physical therapy had assisted with transfer and reported that the patient required two-person assistance for transfer. PT reported the patient was not safe for gait training today. Patient denies pain currently. Family at bedside reported no specific concerns and anticipate return to [facility] at discharge. The patient was drowsy but did respond verbally. Respirations nonlabored decreased airflow and clear breath sounds. Irregularly irregular heart rhythm; atrial fibrillation with moderate ventricular response on telemetry. No lower extremity edema present. INR 1.51 Continue current care. Mild drop in hemoglobin with fracture. Discontinue Johnson catheter. Discontinue IV fluids. Echocardiogram last fall with ejection fraction 40-45%, moderate-severe MR, mild -moderate TR, moderate pulmonary hypertension. CHF likely valvular. Plan/Intensity of Service Laboratory data reviewed, discussed with nursing and family at bedside. ZEINA GALLARDO APRN November 03, 2016 09:09 JENNIFER MCLEOD MD November 03, 2016 16:52
--- NOTE | 2016-11-03 10:21 | NUR ---
COUMADIN CONSULT (Initial): Dx: AFIB Baseline INR = 1.51. Will give Warfarin 2.5 mg today. Mr. Mason is currently on enoxaparin 40mg daily. Will continue to monitor and make adjustments accordingly. Thank you.
--- NOTE | 2016-11-03 10:23 | OPNOTEF ---
DATE OF PROCEDURE 11/02/2016 SURGEON Ori Mckeon MD STRIP MILL OPERATOR Darron Tavarez PA-C PREOPERATIVE DIAGNOSIS Intertrochanteric fracture, right hip. POSTOPERATIVE DIAGNOSIS Intertrochanteric fracture, right hip. OPERATION Open reduction internal fixation, right hip, with TFN from [place]. DESCRIPTION OF PROCEDURE With the patient in supine position, under satisfactory sedation, he was placed on the fracture table and the right hip was reduced and placed in traction. Alignment was confirmed by C-arm. The hip was then prepped and draped sterilely. The patient did receive Kefzol preoperatively and the hip had been marked appropriately. Time-out was taken before the start of the procedure. Incision was then made over the lateral aspect of the hip above the trochanter, deepened down through subcutaneous tissue. Fascia was incised and an awl was used to create a hole in the trochanteric region and a guidepin was inserted into the femoral canal. This position was confirmed with the C-arm. The proximal femur was then reamed out and a 12.5 reamer was taken can down the shaft to ensure there was enough room for the nail. An 180 x 11 [place] TFN nail, 125 degree angle, was then placed into the femoral canal. Alignment was checked with the C-arm. Once it had been driven down far enough, a second incision was made after infiltration of local anesthesia over the lateral femoral cortex. A cannulated guide was then inserted from this lateral position at a 125 degree angle. A guidepin was then inserted into the head and neck and adjusted until the position was inferior and centrally located. Once this had been established, the nail was measured. The head and neck were overreamed and a 10.5 x 100 mm lag screw was inserted. Compression was applied and the set screw was inserted and tightened down and then backed off about a quarter turn. Overall position and alignment at this point was good. A locking screw was then inserted distally - this was a 40 mm screw - without difficulty. Final C-arm check confirmed good position of the implant. The wounds were irrigated and closed in routine fashion. Sterile dressings were applied. Blood loss was about 200 ml. Sponge and needle count was correct. The patient tolerated this procedure well and returned to the recovery room in good condition. TA
[2016-11-03] MEDS: NORMAL SALINE 1,000 ML IV SCH (11:13)
[2016-11-03] MEDS ORDERED: POTASSIUM CHLORIDE 20 MEQ TABLET PO ONE (12:00)
[2016-11-03] MEDS ORDERED: WARFARIN 2.5 MG TABLET PO SCH (12:00)
--- NOTE | 2016-11-03 12:22 | NUR ---
CM STOPPED BY PT'S ROOM; HE WAS ASLEEP, BUT DAUGHTER/DPTALIA YEBOAH WAS PRESENT. THIS WORKER INTRODUCED SELF, EXPLAINED ROLE, PROVIDED CONTACT INFO. DISCUSSED DC PLAN OF RETURNING TO [facility]. EDILIA SAID THIS IS STILL THE PLAN. SHE SAID PT HAS BEEN IN THE FULL CARE NURSING UNIT FOR 1 YEAR AND 1 MONTH. SHE IS AGREEABLE FOR HIM TO RETURN SKILLED IF INDICATED. SHE GAVE PERMISSION TO OPEN THE PORTAL. CALL FROM BRENDA MORAN WITH [facility]. DISCUSSED PT'S RETURN TO [facility], POSSIBLY SKILLED. UPDATED HER POSSIBLE DISMISSAL DATE TOMORROW. OPENED PORTAL.
[2016-11-03] MEDS: FLUTICASONE NASAL SPRAY 50 MCG EA NOSTRIL SCH (12:53)
[2016-11-03] MEDS ORDERED: ACETAMINOPHEN 500 MG TABLET PO PRN (16:15)
--- NOTE | 2016-11-03 18:56 | NUR ---
PROGRESS NOTE THE PT IS ALERT AND ORIENTED TO PERSON ONLY. VITAL SIGNS HAVE BEEN STABLE, WITH THE PT WEENED DOWN TO 1L O2 PER NC AT THIS TIME. PT IS RESTING IN BED, CALL LIGHT WITHIN REACH. PT HAS BEEN TURNED Q2H WHILE RESTING IN BED. NO CONCERNS NOTED. HARLAN DISCONTINUED THIS SHIFT RIGHT BEFORE SHIFT CHANGE AND HAS NOT VOIDED SINCE REMOVAL.
[2016-11-03] MEDS: DONEPEZIL 10 MG TABLET PO SCH (22:06)
[2016-11-03] MEDS: ENOXAPARIN 40 MG/0.4 ML INJECTION SQ SCH (22:07)
[2016-11-04] VITALS (7 sets, daily range): BP systolic 123–153; BP diastolic 71–87; PULSE 52–94; RESP 14–18; TEMP 97.2–97.8; O2SAT 91–96
[2016-11-04] MEDS: NOZIN NASAL SWAB NS SCH ×2 (00:49→08:18)
--- NOTE | 2016-11-04 02:24 | NUR ---
Chart Check 24 hour chart check completed
--- NOTE | 2016-11-04 03:10 | NUR ---
STATUS CLAROS DISCONTINUED 1850 ON 11/03 AND HAS NOT VOIDED SINCE REMOVED.PATIENT DIDN'T COMPLAIN ANY UNCOMFORTABLE. BLADDER SCAN VOLUME 399ML. NOTIFIED DR ESPANA VIA TIGER TEXT. DOCTOR DON'T WANT STRAIGHTER CATHETER AT THIS TIME. NO NEW ORDER. CONTINUE TO MONITOR.
[2016-11-04 05:25] LABS: BASOPHILS % (AUTO) 0.1 % (0-2); EOSINOPHILS # (AUTO) 0.3 T/MM3 (0-0.5); EOSINOPHILS % (AUTO) 3.2 % (0-4); HCT - HEMATOCRIT 30.6 % (41-53); HGB - HEMOGLOBIN 9.7 GM/DL (13.5-17.5); IMMATURE GRANULOCYTE # (AUTO) 0.02 T/MM3 (0.00-0.03); IMMATURE GRANULOCYTE % (AUTO) 0.3 % (0.0-0.5); LYMPHOCYTES # (AUTO) 0.7 T/MM3 (1-4.8); LYMPHOCYTES % (AUTO) 9.4 % (23-45); MEAN CORPUSCULAR HGB 30.3 UUG (26-34); MEAN CORPUSCULAR HGB CONC(MCHC 31.7 GM/DL (31-37); MEAN CORPUSCULAR VOLUME 95.6 UM3 (80-100); MEAN PLATELET VOLUME 12.5 UM3 (9.4-12.4); MONOCYTES # (AUTO) 0.7 T/MM3 (0-0.8); MONOCYTES % (AUTO) 8.4 % (0-9.0); NEUTROPHILS #(AUTO)-ABSOLUTE 6.2 T/MM3 (1.8-7.7); NEUTROPHILS % (AUTO) 78.6 % (33-66); WBC - WHITE BLOOD COUNT 7.9 T/MM3 (4.5-11.0)
[2016-11-04 05:27] LABS: INR 1.52 (0.77-1.03); PROTHROMBIN TIME 16.6 SEC (9.48-12.52)
[2016-11-04 05:32] LABS: ANION GAP 10 MEQ/L (5-15); BUN/CREATININE RATIO 43 RATIO (6-26); CALCIUM 8.9 MG/DL (8.4-10.2); CHLORIDE 106 MEQ/L (98-107); CO2 - CARBON DIOXIDE 27 MEQ/L (22-30); GLOMERULAR FILTRATION RATE 70; GLUCOSE 115 MG/DL (75-110); MAGNESIUM 2.1 MG/DL (1.6-2.3); POTASSIUM 3.6 MEQ/L (3.6-5); SODIUM 143 MEQ/L (134-144)
[2016-11-04] MEDS: PANTOPRAZOLE 40 MG TABLET PO SCH (06:18)
--- NOTE | 2016-11-04 06:30 | NUR ---
STATUS PATIENT IS ALERT AND ORIENTED TO SELF. PATIENT HAS BEEN SLEPT BETWEEN CARES. NO C/O CHEST PAIN,SOA,OR N/V. 1L O2 VIA NC. PATIENT HAS BEEN TURNED Q2H. PATIENT HAD ONE INCONTINENT BLADDER AFTER CLAROS REMOVED .ICE PAD APPLIED TO RT HIP.DRESSING DRY ,INTACT. CALL LIGHT WITHIN REACH. BED ALARM ON. CONTINUE TO MONITOR.
[2016-11-04] MEDS: SENNA + DOCUSATE TAB PO SCH (08:18)
[2016-11-04] MEDS: CARVEDILOL 12.5 MG TABLET PO SCH (08:19)
[2016-11-04] MEDS: FUROSEMIDE 40 MG TABLET PO SCH (08:19)
[2016-11-04] MEDS: SERTRALINE 100 MG TABLET PO SCH (08:19)
[2016-11-04] MEDS: ACETAMINOPHEN 500 MG TABLET PO SCH (08:19)
[2016-11-04] MEDS: MEMANTINE 10 MG TABLET PO SCH (08:19)
[2016-11-04] MEDS: FAMOTIDINE 20 MG TABLET PO SCH (08:19)
[2016-11-04] MEDS: FLUTICASONE NASAL SPRAY 50 MCG EA NOSTRIL SCH (08:20)
[2016-11-04] MEDS: POTASSIUM CL. 10mEq CAP PO SCH (08:20)
--- NOTE | 2016-11-04 08:28 | PDORTHOPN ---
Subjective Date DATE: 11/04/16 TIME: 08:25 Subjective Mr Mason has no complaints this AM. He states he is not in pain. Hgb 9.7, Plts 94. INR 1.52 Objective Vital Signs Vital signs Vital Signs 11/03/16 11/04/16 11/04/16 23:48 03:45 08:09 Temp 98.1 97.8 97.2 Pulse 82 84 94 Resp 16 14 18 B/P 119/69 123/76 153/85 Pulse Ox 93 93 91 O2 Delivery Nasal Cannula Nasal Cannula Room Air O2 Flow Rate 1.00 1.00 Height (Feet): 5 Height (Inches): 11.00 Weight (Kilograms): 64.000 General General Appearance: Alert, No Acute Distress Respiratory (Brief) Respiratory Brief: FOUND: non-labored Cardiovascular (Brief) Cardiac: FOUND: calf easily compressible, calf soft, nontender, pedal pulses intact Capillary Refill: <2 sec Surgical Site Incision: FOUND: bloody drainage present (serosangenous on all dressings, proximal is saturated, nurse will change it today.), dressing intact Wound Drainage: FOUND: serosanguinous Integumentary (Brief) Integumentary Brief: FOUND dry, FOUND pink, FOUND warm Neurologic (Brief) Neurological Brief: FOUND: extremities w/o deficits, neuro intact Psychiatric (Brief) Psychiatric Brief: FOUND: alert, NOT FOUND: oriented Laboratory Laboratory Laboratory Tests 11/03/16 04:44 11/04/16 04:38 Laboratory Tests 11/03/16 04:44 11/04/16 04:38 Assessment & Plan Problems: (1) Intertrochanteric fracture of right hip Status: Acute Qualifiers: Encounter type: initial encounter Fracture type: closed Qualified Codes: S72.141A - Displaced intertrochanteric fracture of right femur, initial encounter for closed fracture Assessment & Plan: x WBAT, mobilize with PT / OT. Lovenox - Coumadin & SCD's, Medical mgmt per hospitalist. Hospital Course Summary Disclaimer The visit summary below is not to be considered part of the above Progress Note. Hospital Course Admit patient to inpatient status under the care of Dr. Jarrett for acute right intertrochanteric hip fracture Consultation placed to Dr. Mckeon for further orthopedic evaluation and treatment. Will obtain the following laboratory studies on admission CBC, CMP, urinalysis. Regarding INR of 1.94, will give patient vitamin K 5 milligrams by mouth 1 now. Will recheck an INR this evening at 1800. Will need to start Lovenox post-operatively to bridge Coumadin until therapeutic Place Johnson cath to DD Obtain preoperative chest x-ray. Normal saline at 80 ML per hour for gentle hydration. Monitor for evidence of fluid overload. [place] and tramadol as needed for pain control. Oxygen therapy to maintain adequate saturations. Will recheck CBC and BMP tomorrow morning to follow blood counts, renal function and electrolytes. Again, patient's son request patient to be a do not resuscitate and this orders written. Will discuss further orders and plan of care with attending, Dr. Jarrett At time of discharge medical care is to return to PCP Dr Perfecto Trujillo 11/01/16 Patient did received a total of 10 milligrams of vitamin K orally yesterday. This morning. INR continues to be elevated at 2.0. We unit of fresh frozen plasma is given today Recheck INR later today as well as tomorrow morning Spoke with orthopedic team will postpone surgery until tomorrow. Otherwise, medically patient is stable. Continue with oxygen to maintain saturations. Hemoglobin stable at 10.7 Will discuss further with Dr Jarrett 11/02/16 INR remains elevated this morning at 1.5. FFP 1 unit given today. Will recheck INR at 11 a.m. Hopeful for scheduled surgery at noon today. Regarding tachycardia will give patient a one-time dose of IV Lopressor as beta stone has been on hold preoperatively. Will also give 20 grams of IV Lasix 1 for diuresis. Routine home medications ordered to resume this evening. Will discuss with orthopedic team regarding anticoagulation. Patient will will require Lovenox bridge with Coumadin until therapeutic. May need to wait and initiate this tomorrow. Check CBC and BMP tomorrow morning to follow blood counts, renal function, electrolytes Plan of care discuss further with attending, Dr. Jarrett (covering hospitalist) 1051- Nursing staff called to report hives and itching to anterior chest during FFP transfusion. Will give one-time dose of Benadryl, stop transfusion and reevaluate patient status. 11/03/16 Postoperatively, Mr Mason is doing well. Currently on 3 liters oxygen by nasal cannula. Will work on weaning down. He was started on Lovenox last evening. Pharmacy consult placed to aid with Coumadin dosing. She will need to be on bridge therapy until he is therapeutic. INR this morning 1.51. Further evidence of hives or reaction from FFP yesterday. Continue to monitor blood pressure as he has been intermittently elevated. Continue with Lopressor, Coreg. Potassium this morning is slightly low at 3.5. Continue with oral potassium supplementation. Will give an additional 20 milliequivalents with lunch. Will recheck CBC and BMP tomorrow morning. Follow blood counts, renal function and electrolytes ELAINE SAUCEDA November 04, 2016 08:28
--- NOTE | 2016-11-04 09:33 | NUR ---
COUMADIN CONSULT (Recurring): Today's INR = 1.52. Will give Warfarin 3mg today. Will continue to monitor & make adjustments accordingly. Thank you.
--- NOTE | 2016-11-04 11:54 | NUR ---
CM POSSIBLE DC TO [facility] SNU TODAY. SPOKE WITH SALINA ABOUT THIS, SHE IS EXPECTING THIS. SPOKE WITH PT AND SON IN LAW HUMBERTO ABOUT THIS. HUMBERTO WAS AGREEABLE, AND SAID HE WANTS PT TO RETURN TO [facility] SOON POSSIBLE. REVIEWED IM WITH HUMBERTO (DUE TO PT'S CONFUSION); HE SIGNED, AND HAD NO QUESTIONS/NEEDS. Addendum: 11/04/16 at 1156 by LO CARR Amended: Links added.
[2016-11-04] MEDS ORDERED: WARFARIN 3 MG TABLET PO SCH (12:00)
[2016-11-04] MEDS ORDERED: LORA0.5T2 PO (12:09)
[2016-11-04] MEDS ORDERED: SENN-152 PO (12:09)
[2016-11-04] MEDS ORDERED: ACET-2723 PO (12:09)
[2016-11-04] MEDS ORDERED: WARF3TAB6 PO (12:09)
--- NOTE | 2016-11-04 12:20 | PDOCECFAO ---
Admission Orders Admission Orders Admit to: [facility] Allergies: Coded Allergies: No Known Allergies (Unverified , 10/31/16) Admitting Diagnosis R Hip Fracture Admitting Physician Héctor Jarrett MD Code Status Do Not Resuscitate Anticipated LOS: 30 days or less Rehab Potential: Fair Rehab Prognosis: Fair Diet: Regular Wound/Incision Care: Leave dressings in place pending follow-up with orthopedics. May use Facility Protocol /SO: Yes May Have Flu Vaccine: Yes Evaluations/Treat: PT, OT [facility] Certification I certify that SNF services are required to be given on an Inpatient basis because of the patients need for correction care on a continuing basis for the condition(s) for which he/she received inpatient hospital services prior to his/her transfer to the SNF. SNF inpatient care is necessary for the following reasons C/P Assessment/Care, Wound Care/Assessment, Assess Anticoag Therapy Cardiac or Respiratory Arrest In Event of Arrest: Do Not Start CPR Resident is Aware of Diagnosis: Yes Additional Orders: Patient needs follow-up appointment with Dr. Ori Mckeon in 3 weeks; follow-up with Dr. Trujillo in approximately 1 week. INR on 11/06 and 11/08-diagnosis atrial fibrillation; INR on 11/04 was 1.52 and patient is discharged on 3 mg of warfarin as INR was subtherapeutic on admission to [facility]. No pain medications stronger than Tylenol have been needed postoperatively. JENNIFER MCLEOD MD November 04, 2016 12:20
--- NOTE | 2016-11-04 13:48 | NUR ---
ALBERTINA SPOKE WITH DR. MCLEOD, WHO SAID PT CAN DC TODAY. SPOKE WITH SALINA AT [facility], ARRANGED NIBBLER OPERATOR TIME FOR 2 PM. TIME OUT COMPLETED WITH RN. ORDERS FAXED. CALL FROM BRENDA WITH [facility]; SHE SAID WILL LOOK FOR THE ORDERS.
--- NOTE | 2016-11-04 14:00 | NUR ---
DISCHARGE PATIENT TO BE TRANSFERRED TO [facility] AT THIS TIME. PATIENT IS ALERT TO PERSON ONLY. PATIENT VITALS ARE STABLE AND PATIENT IS ON ROOM AIR. PERSONAL BELONGINGS RETURNED. IV DISCONTINUED. PATIENT VERBALIZED UNDERSTANDING OF TRANSFER TO [facility] SKILLED UNIT. DISCHARGE PACKET GIVEN TO [facility] TRANSPORTATION. REPORT GIVEN TO Jacky ROWE LPN.
--- NOTE | 2016-11-04 14:11 | NUR ---
ALBERTINA CALLED SALINA AT [facility], TO CONFIRM RECEIPT OF THE ORDERS. SHE SAID SHE WILL LOOK AND WILL CALL THIS WORKER IF SHE NEEDS ANYTHING.
--- NOTE | 2016-11-04 22:45 | DSPDOC ---
General Date Date DATE: 11/04/16 TIME: 22:29 Attending Physician Héctor Jarrett MD Admitting Physician Héctor Jarrett MD Consulting Physician Vincent Mckeon MD Admitting Diagnosis R Hip Fracture Discharge Diagnosis Right intertrochanteric hip fracture Dementia Acute blood loss anemia Chronic kidney disease, stage III Chronic atrial fibrillation Hypertension Procedures ORIF on 11/02 with short gamma nail Laboratory Laboratory Tests Test 11/04/16 04:38 White Blood Count 7.9T/MM3 (4.5-11.0) Red Blood Count 3.20M/MM3 (4.50-5.90) Hemoglobin 9.7GM/DL (13.5-17.5) Hematocrit 30.6% (41-53) Mean Corpuscular Volume 95.6UM3 (80-100) Mean Corpuscular Hemoglobin 30.3UUG (26-34) Mean Corpuscular Hemoglobin Concent 31.7GM/DL (31-37) RDW Standard Deviation 51.7FL (36.9-50.2) Platelet Count 94T/MM3 (130-400) Mean Platelet Volume 12.5UM3 (9.4-12.4) Immature Granulocyte % (Auto) 0.3% (0.0-0.5) Neutrophils (%) (Auto) 78.6% (33-66) Lymphocytes (%) (Auto) 9.4% (23-45) Monocytes (%) (Auto) 8.4% (0-9.0) Eosinophils (%) (Auto) 3.2% (0-4) Basophils (%) (Auto) 0.1% (0-2) Absolute Immature Granulocyte (auto 0.02T/MM3 (0.00-0.03) Absolute Neutrophils (auto) 6.2T/MM3 (1.8-7.7) Absolute Lymphocytes (auto) 0.7T/MM3 (1-4.8) Absolute Monocytes (auto) 0.7T/MM3 (0-0.8) Absolute Eosinophils (auto) 0.3T/MM3 (0-0.5) Absolute Basophils (auto) 0.0T/MM3 (0-0.2) Prothromb Time International Ratio 1.52 (0.77-1.03) Turbidity < 20 (0-20) Sodium Level 143MEQ/L (134-144) Potassium Level 3.6MEQ/L (3.6-5) Chloride Level 106MEQ/L (98-107) Carbon Dioxide Level 27MEQ/L (22-30) Anion Gap 10MEQ/L (5-15) Blood Urea Nitrogen 43.0MG/DL (9-20) Creatinine 1.0MG/DL (0.8-1.5) Glomerular Filtration Rate Calc 70 BUN/Creatinine Ratio 43RATIO (6-26) Glucose Level 115MG/DL (75-110) Calculated Osmolality 287MOSM/KG (261-280) Calcium Level 8.9MG/DL (8.4-10.2) Magnesium Level 2.1MG/DL (1.6-2.3) Icterus Index < 2 (0-7) Chemistry Specimen Hemolysis < 15 (0-25) Admission hemoglobin 11.9, platelet count 120,000, and INR 1.64. Admission chemistries notable only for BUN of 31, creatinine 1.2, alkaline phosphatase 223. Radiology Noncontrast CT of the head on admission revealed moderate generalized atrophy without acute pathology. Small vascular ischemic changes were described. Cervical spine CT on admission revealed degenerative changes at multiple levels but no evidence of subluxation or acute fracture. CT of the pelvis on admission revealed a mildly comminuted and impacted right intertrochanteric fracture. There is no significant hematoma. Degenerative changes were reported in the lower lumbar spine and generalized demineralization. Chest x-ray on admission revealed atelectasis versus consolidation in the left lower lobe and possible trace effusions. Overall this was improved compared to past films up proximally 6 months ago. History of Present Illness Patient is an 89-year-old male who currently resides at [facility]. This morning he suffered a witnessed fall from standing, landing on the right hip. EMS was contacted and brought patient to the emergency room for further evaluation and treatment. A pelvis x-ray did reveal a right intertrochanteric femoral fracture. Given nature of patient's fall further trauma evaluation including CT scan of the head and C-spine were obtained showing no acute trauma/fractures or intracranial hemorrhages. Due to patient's chronic anticoagulation and INR was obtained which was 1.94. He did receive fentanyl and Zofran in the emergency room. He was mildly hypoxic with sats of 88 %. He was placed on 3 liters oxygen by nasal cannula to maintain adequate saturations. The hospitalist services were contacted and accepted patient for inpatient admission for further evaluation and treatment. Malcolm is seen on admission with his Son at the bedside. Son reports that patient has a known history of dementia and has had some cognitive decline over the past several months. We did discuss advanced directives as sun but does verify patient is a do not resuscitate. Hospital Course Mr. Mason was admitted by the hospitalist service for management of acute right intertrochanteric hip fracture. Dr. Mckeon was consulted for assistance with surgical stabilization of the fracture. Surgery was delayed due to anticoagulation and need to reverse warfarin. Patient was initially treated with 5 mg vitamin K which was repeated the following day at which time fresh frozen plasma was administered to try to correct INR to permit surgery. He eventually went to the OR on 11/02 after additional FFP was given preoperatively due to mild residual elevation of INR preoperatively. The patient developed some hives with FFP on 11/02 requiring administration of Benadryl for symptomatic control. Patient's postoperative course was complicated by poor tolerance of weightbearing although he is weightbearing as tolerated per orthopedic instruction. Pain control was excellent with patient requiring primarily Tylenol following surgical stabilization and nothing stronger than Tylenol after early 11/03. There with mild drop in patient's hemoglobin associated with the intertrochanteric fracture and surgery but transfusion was not needed. Hemoglobin will need to be followed intermittently to determine if iron supplementation should be needed. INR at discharge is beginning to climb. He received 3 mg of warfarin on the date of discharge and had an INR of 1.5. Because INR was slightly subtherapeutic on admission warfarin dose was increased to 3 mg at discharge from prior dose of 2.5 mg daily. Physical therapy recommended continued therapy at [facility] and family requested return to [facility] where the patient typically lives. Patient was felt stable for discharge on 11/04 at which time he denied pain although staff indicated he had mild discomfort when he transferred from bed to chair with nursing assistance. He was voiding following removal of Johnson catheter yesterday and patient denied dyspnea or nausea. Respirations are nonlabored and breath sounds clear. Cardiac rhythm remains irregular. Patient is asked to follow-up with Dr. Trujillo in approximately one week and Dr. Mckeon in 3 weeks. INR will be rechecked in 2 days and again 4 days to assure that it is returning to a therapeutic range for chronic atrial fibrillation. Hemoglobin will need to be rechecked in the relatively near future. Patient is weightbearing as tolerated but requires 2 person assist for transfers at the present time. >30 minutes spent on patient care and discharge care coordination today on the date of discharge. -- Problems: (1) Intertrochanteric fracture of right hip Status: Acute (2) CKD (chronic kidney disease) stage 3, GFR 30-59 ml/min Status: Chronic (3) Atrial fibrillation Status: Chronic (4) Anticoagulated on Coumadin Status: Chronic Assessment & Plan: Patient was given an initial dose of 5 mg oral vitamin K, but by the evening was not yet responsive so 2nd dose was given. This is not effective by morning fresh frozen plasma may be given prior to surgery (5) HTN (hypertension) Status: Chronic (6) Dementia Status: Chronic (7) Prostate cancer Status: Resolved (8) Anemia following surgery Status: Acute (9) CHF (congestive heart failure) Status: Chronic Code Status Do Not Resuscitate Home Meds Active Scripts Sennosides/Docusate Sodium (Senna Plus Tablet) 1 Tab Tablet, 1 TAB PO BID for CONSTIPATION for 30 Days, #60 TAB hold if having loose stools Prov:JENNIFER MCLEOD MD 11/04/16 Acetaminophen (Tylenol Extra Strength) 500 Mg Tablet, 500 MG PO Q4H Y for PAIN for 30 Days, #180 TAB Prov:JENNIFER MCLEOD MD 11/04/16 Warfarin Sodium (Warfarin Sodium) 3 Mg Tablet, 3 MG PO NOON for 30 Days, #30 TAB Take 1 tablet, by mouth, 1 time a day (at NOON). Prov:JENNIFER MCLEOD MD 11/04/16 Lorazepam (Lorazepam) 0.5 Mg Tablet, 0.25 MG PO BID Y for ANXIETY, #15 Prov:JENNIFER MCLEOD MD 11/04/16 Reported Medications Furosemide (Furosemide) 40 Mg Tablet, 40 MG PO DAILY 10/31/16 Famotidine (Famotidine) 20 Mg Tablet, 20 MG PO DAILY 10/31/16 Aspirin (Aspirin) 81 Mg Tab.chew, 81 MG PO DAILY 10/31/16 Potassium Chloride (Potassium Chloride) 10 Meq Capsule.er, 20 MEQ PO BID 05/05/16 Sertraline (Zoloft) 100 Mg Tablet, 100 MG PO DAILY, TAB 05/05/16 Memantine HCl (Namenda) 10 Mg Tablet, 10 MG PO BID 05/05/16 Acetaminophen (Tylenol Extra Strength) 500 Mg Tablet, 500 MG PO BID 05/05/16 Donepezil HCl (Aricept) 10 Mg Tablet, 10 MG PO HS 05/05/16 Carvedilol (Coreg) 12.5 Mg Tablet, 12.5 MG PO BIDWM 05/05/16 Fluticasone Propionate (Fluticasone Propionate) 16 Gm [place].susp, 1 SPRAY NS DAILY 09/28/12 Discontinued Reported Medications Warfarin Sodium (Warfarin Sodium) 2.5 Mg Tablet, 2.5 MG PO DAILY 10/31/16 Face to Face Encounter I met with patient on the day of dismissal and discussed follow up appointments , medications, and safety plan. Discharge Disposition [facility] Copies To 1: VINCENT MCKEON MD; FELICITY TRUJILLO MD Documentation Requirements Documenting Diagnosis Altered Mental Status CHF Type and Acuity Type of CHF: Diastolic Acuity CHF: Chronic Chronic Kidney Disease Stage of CKD: Stage 3 GFR 30-59 Anemia Anemia Etiology: Blood Loss, Postoperative Anemia Acuity: Acute Alt. Mental Status/Confusion Check if condition above is: Chronic (dementia) JENNIFER MCLEOD MD November 04, 2016 22:42
--- NOTE | 2016-11-05 17:06 | NUR ---
CM FOLLOW UP CALL ATTEMPT CALLED [facility], NO ANSWER; HAD TO LEAVE MESSAGE IN [facility]'S GENERAL MAILBOX.
== END 2016-11-04 14:00 | DRG 481 ==
LOC: ED 07:04 → EDHOLD 08:34 → SRG 08:59
PROVIDERS: ADMIT Family Medicine; ATTEND Family Medicine
PROC: 30233K1 Transfusion of Nonautologous Frozen Plasma into Peripheral Vein, Percutaneous Approach (ICD-10-PCS; 2016-11-01)
PROC: 0QS606Z Reposition Right Upper Femur with Intramedullary Internal Fixation Device, Open Approach (ICD-10-PCS; principal; 2016-11-02 12:11)
DX: S72.141A Displaced intertrochanteric fracture of right femur, initial encounter for closed fracture (principal); I13.0 Hypertensive heart and chronic kidney disease with heart failure and stage 1 through stage 4 chronic kidney disease, or unspecified chronic kidney disease; D62 Acute posthemorrhagic anemia; N18.3 Chronic kidney disease, stage 3 (moderate); I50.9 Heart failure, unspecified; I48.2 Chronic atrial fibrillation; F03.90 Unspecified dementia, unspecified severity, without behavioral disturbance, psychotic disturbance, mood disturbance, and anxiety; Z66 Do not resuscitate; W18.30XA Fall on same level, unspecified, initial encounter; Y92.129 Unspecified place in nursing home as the place of occurrence of the external cause; Y99.8 Other external cause status; Z79.82 Long term (current) use of aspirin; Z79.01 Long term (current) use of anticoagulants
CPT/HCPCS: 36415; 80048; 80053; 81003; 83735; 85025; 85610; 86850; 86900; 86901; 93005; 96374; 96375